=== PATIENT | female | born 1935 | race Caucasian/White ===

== ENCOUNTER 2018-08-14 19:41 | Inpatient (IN) ==
[2018-08-14] MEDS ORDERED: Isovue-370 500 ML BOTTLE IVP ONE (19:51)
--- NOTE | 2018-08-14 19:55 | Emergency Department Note ---
Disposition Clinical Impression: Cough Disposition: Still a Patient Condition: Fair Referrals: NONE,PCP [Primary Care Provider] - Forms: ED Satisfaction Letter General Adult HPI - General Chief complaint: ED Shortness of Breath/Dyspnea Stated complaint: "Lung mass" Time Seen by Provider: 08/14/18 19:51 Source: patient, EMS Limitations: no limitations - History of Present Illness Pain Scale: 0 - Related Data Home Medications Medication Instructions Recorded Confirmed Lisinopril [Zestril] 40 mg PO DAILY 09/07/17 07/04/18 Montelukast [Singulair] 10 mg PO QPM 05/28/18 07/04/18 risperiDONE [Risperidone] 1 mg PO BID 05/28/18 07/04/18 Acetaminophen [Tylenol] 325 - 650 mg PO TID PRN 07/04/18 07/04/18 Aspirin [Lo-Dose Aspirin EC] 81 mg PO DAILY 07/04/18 07/04/18 Atorvastatin [Lipitor] 10 mg PO DAILY 07/04/18 07/04/18 Cholecalciferol (Vitamin D3) 5,000 unit PO DAILY 07/04/18 07/04/18 [Vitamin D3] Melatonin 5 - 10 mg PO HS PRN 07/04/18 07/04/18 Mirtazapine 7.5 mg PO HS 07/04/18 07/04/18 Nicotine Patch [Nicoderm] 7 mg TD DAILY 07/04/18 07/04/18 Polyethylene Glycol 3350 [MiraLax 17 gm PO DAILY PRN 07/04/18 07/04/18 bowel prep] Previous Rx's Medication Instructions Recorded Albuterol Sulfate [Ventolin Hfa] 8 gm IH Q4H PRN #1 hfa.aer.ad 07/05/18 Budesonide/Formoterol 160/4.5 2 puff IH BIDR #1 hfa.aer.ad 07/05/18 [Symbicort 160/4.5] predniSONE [PredniSONE] 40 mg PO DAILY #9 tablet 07/05/18 Allergies Allergy/AdvReac Type Severity Reaction Status Date / Time Mercury (Elemental) Allergy Rash Verified 03/15/18 07:49 Past Medical History - Past Medical History Medical history: Reports: COPD, hyperlipidemia, hypertension Psychiatric history: Reports: no psych history INLAYER SILVER history: Reports: no INLAYER SILVER history - Social History Smoking Status: Current every day smoker Smokeless Tobacco Status: No Alcohol use: Reports: none Drug use: Reports: none Physical Exam - General Limitations: no limitations General appearance: alert, in no apparent distress Course Vital Signs Temperature 98.6 F 08/14/18 19:48 Pulse Rate 87 08/14/18 19:48 Respiratory Rate 16 08/14/18 19:48 Blood Pressure 136/87 08/14/18 19:48 O2 Sat by Pulse Oximetry 93 08/14/18 19:48 Temperature 98.6 F 08/14/18 19:48 Pulse Rate 87 08/14/18 19:48 Respiratory Rate 16 08/14/18 19:48 Blood Pressure 136/87 08/14/18 19:48 O2 Sat by Pulse Oximetry 93 08/14/18 19:48 Oxygen Delivery Oxygen Delivery Nasal Cannula Medical Decision Making - Lab Data Result diagrams: 08/14/18 19:51 08/14/18 19:51 Lab Results 08/14/18 08/14/18 Range/Units 19:51 19:51 WBC 14.9 H (4.3-11.1) K/mcL RBC 4.32 (3.82-4.97) M/mcL Hgb 12.8 (11.5-15.4) g/dL Hct 39.1 (35.3-44.9) % MCV 90.5 (83.0-100.0) fL MCH 29.6 (28.0-33.3) pg MCHC 32.7 (31.6-35.5) g/dL RDW 14.0 (11.5-14.5) % Plt Count 231 (140-400) K/mcL MPV 11.3 (9.4-12.4) fL Immature Gran % 0.7 (0-4) % Seg Neutrophils % 93.3 % Lymphocytes % 3.1 % Monocytes % 2.7 % Eosinophils % 0.1 % Basophils % 0.1 % Neutrophils # 13.9 H (1.6-8.9) K/mcL Lymphocytes # 0.5 L (0.6-4.6) K/mcL Monocytes # 0.4 (0.0-1.3) K/mcL Eosinophils # 0.0 (0.0-0.6) K/mcL Basophils # 0.0 (0.0-0.2) K/mcL Sodium 139 (136-145) mEq/L Potassium 4.0 (3.5-5.1) mEq/L Chloride 101 (98-107) mEq/L Carbon Dioxide 27 (23-29) mEq/L BUN 20 (8-23) mg/dL Creatinine 0.78 (0.60-1.20) mg/dL Est GFR ( Amer) > 60 (> 60) Est GFR (Non-Af Amer) > 60 (> 60) BUN/Creatinine Ratio 26 (6-26) Glucose 147 H (70-105) mg/dL Calculated Osmolality 293 (280-300) Calcium 9.9 (8.6-10.3) mg/dL Attestation Statement - Attestation Attestation: I examined this patient and my medical decision-making was reviewed with the Resident Physician. I agree with the documented findings, disposition and treatment plan as described except to the extent set forth below. Patient to the ED with cough. Onset a couple of days ago. Productive of sputum. She went to the urgent care. Her chest x-ray was read as a possible mass that she sent here for CAT scan. She denies shortness of breath fever or chest pain. On exam she is in no respiratory distress. She is hypoxic at 89% on room air. Lungs diminished but clear. Plan. Labs, EKG, CT chest. CT chest pending. Signed out to Dr. Garcia pending CT result and likely admission.
[2018-08-14 20:14] LABS: Basophils % 0.1 %; Eosinophils % 0.1 %; Hematocrit 39.1 % (35.3-44.9); Hemoglobin 12.8 g/dL (11.5-15.4); Immature Granulocytes % 0.7 % (0-4); Lymphocytes # 0.5 K/mcL (0.6-4.6); Lymphocytes % 3.1 %; Mean Corpuscular HGB Conc 32.7 g/dL (31.6-35.5); Mean Corpuscular Hemoglobin 29.6 pg (28.0-33.3); Mean Corpuscular Volume 90.5 fL (83.0-100.0); Mean Platelet Volume 11.3 fL (9.4-12.4); Monocytes # 0.4 K/mcL (0.0-1.3); Monocytes % 2.7 %; Neutrophils # 13.9 K/mcL (1.6-8.9); Platelet Count 231 K/mcL (140-400); Red Blood Count 4.32 M/mcL (3.82-4.97); Segmented Neutrophils % 93.3 %
[2018-08-14 20:30] LABS: BUN/Creatinine Ratio 26 (6-26); Blood Urea Nitrogen 20 mg/dL (8-23); Calcium 9.9 mg/dL (8.6-10.3); Carbon Dioxide 27 mEq/L (23-29); Chloride 101 mEq/L (98-107); Glucose 147 mg/dL (70-105); Osmolality,Calculated 293 (280-300); Sodium 139 mEq/L (136-145); eGFR For Non-African Americans > 60 (> 60)
--- NOTE | 2018-08-14 20:58 | Emergency Department Note ---
Disposition Clinical Impression: Cough Disposition: Still a Patient Condition: Fair Referrals: NONE,PCP [Primary Care Provider] - Forms: ED Satisfaction Letter General Adult HPI - General Chief complaint: ED Shortness of Breath/Dyspnea Stated complaint: "Lung mass" Time Seen by Provider: 08/14/18 19:51 Source: patient, EMS Mode of arrival: EMS Limitations: no limitations Nursing Notes Reviewed: Yes Vital Signs Reviewed: Yes - History of Present Illness HPI Narrative: 83-year-old female with significant past medical history of COPD presenting to the emergency department chief complaint of cough. Patient states for the past 3 days she has had a cough with sputum that is yellow colored. Denies any hemoptysis. Denies any chest pain, abdominal pain, fevers, nausea or vomiting. She states she went to an urgent care today with her family were chest x-ray was completed. This was concerning for potential mass and was transferred here for further evaluation. Patient states she is not normally on oxygen the patient was requiring 2 L to stay above 90%. Pain Scale: 0 - Related Data Home Medications Medication Instructions Recorded Confirmed Lisinopril [Zestril] 40 mg PO DAILY 09/07/17 07/04/18 Montelukast [Singulair] 10 mg PO QPM 05/28/18 07/04/18 risperiDONE [Risperidone] 1 mg PO BID 05/28/18 07/04/18 Acetaminophen [Tylenol] 325 - 650 mg PO TID PRN 07/04/18 07/04/18 Aspirin [Lo-Dose Aspirin EC] 81 mg PO DAILY 07/04/18 07/04/18 Atorvastatin [Lipitor] 10 mg PO DAILY 07/04/18 07/04/18 Cholecalciferol (Vitamin D3) 5,000 unit PO DAILY 07/04/18 07/04/18 [Vitamin D3] Melatonin 5 - 10 mg PO HS PRN 07/04/18 07/04/18 Mirtazapine 7.5 mg PO HS 07/04/18 07/04/18 Nicotine Patch [Nicoderm] 7 mg TD DAILY 07/04/18 07/04/18 Polyethylene Glycol 3350 [MiraLax 17 gm PO DAILY PRN 07/04/18 07/04/18 bowel prep] Previous Rx's Medication Instructions Recorded Albuterol Sulfate [Ventolin Hfa] 8 gm IH Q4H PRN #1 hfa.aer.ad 07/05/18 Budesonide/Formoterol 160/4.5 2 puff IH BIDR #1 hfa.aer.ad 07/05/18 [Symbicort 160/4.5] predniSONE [PredniSONE] 40 mg PO DAILY #9 tablet 07/05/18 Allergies Allergy/AdvReac Type Severity Reaction Status Date / Time Mercury (Elemental) Allergy Rash Verified 03/15/18 07:49 All systems ED: reviewed and negative except as stated. Constitutional: Denies: fever Eyes: Reports: as per HPI ENT ED: Reports: as per HPI Cardiovascular: Denies: chest pain Respiratory: Reports: cough, sputum production Gastrointestinal: Denies: abdominal pain Genitourinary: Reports: as per HPI Musculoskeletal: Reports: as per HPI Integumentary: Reports: as per HPI Neurological: Reports: as per HPI Psychiatric: Reports: as per HPI Endocrine: Reports: as per HPI Hematological/Lymphatic: Reports: as per HPI Allergic/Immunologic: Reports: as per HPI Past Medical History - Past Medical History Attestation: Yes The following information was validated with the patient. Medical history: Reports: COPD, hyperlipidemia, hypertension Psychiatric history: Reports: no psych history MANAGER OF DEVELOPMENT history: Reports: no MANAGER OF DEVELOPMENT history - Social History Smoking Status: Current every day smoker Smokeless Tobacco Status: No Alcohol use: Reports: none Drug use: Reports: none Physical Exam - General Limitations: no limitations General appearance: alert, in no apparent distress - Head Head exam: atraumatic, normocephalic, normal inspection - Eye Eye exam: Absent: scleral icterus - ENT ENT exam: mucous membranes moist - Neck Neck exam: Present: full ROM - Chest Chest inspection: Present: symmetric chest wall rise - Respiratory Respiratory exam: Present: normal lung sounds bilaterally. Absent: respiratory distress, wheezes - Cardiovascular Cardiovascular exam: Present: regular rate, normal rhythm, normal heart sounds - Abdominal Exam Abdominal exam: Present: soft, Non-Tender. Absent: distention, guarding, rebound - Extremities Exam Extremities exam: Present: full ROM - Neurological Exam Neurological exam: Present: alert - Psychiatric Psychiatric exam: Present: normal affect - Skin Skin exam: Present: warm Course Course Narrative: 83-year-old female presenting for an abnormal chest x-ray and cough. In the room she is alert and oriented 3. Oxygen saturation 88% on room air therefore placed on 2 L nasal cannula and oxygen saturation responded appropriately up to 92%. Good waveform. Otherwise hemodynamically stable. At this time will order a CT of the chest along with basic labs including CBC and BMP. Disposition most likely admission due to hypoxia but pending images and labs. Patient agrees with this plan. - Reevaluation(s) Reevaluation #1: Patient's laboratory analysis shows mild leukocytosis. CT pending at this time. We will plan to sign the patient out to Dr. Garcia at this time. Patient remains alert and oriented 3 and hemodynamically stable. Vital Signs Temperature 98.6 F 08/14/18 19:48 Pulse Rate 87 08/14/18 19:48 Respiratory Rate 16 08/14/18 19:48 Blood Pressure 136/87 08/14/18 19:48 O2 Sat by Pulse Oximetry 93 08/14/18 19:48 Temperature 98.6 F 08/14/18 19:48 Pulse Rate 87 08/14/18 19:48 Respiratory Rate 16 08/14/18 19:48 Blood Pressure 136/87 08/14/18 19:48 O2 Sat by Pulse Oximetry 93 08/14/18 19:48 Oxygen Delivery Oxygen Delivery Nasal Cannula Medical Decision Making - Lab Data Result diagrams: 08/14/18 19:51 08/14/18 19:51 Lab Results 08/14/18 08/14/18 Range/Units 19:51 19:51 WBC 14.9 H (4.3-11.1) K/mcL RBC 4.32 (3.82-4.97) M/mcL Hgb 12.8 (11.5-15.4) g/dL Hct 39.1 (35.3-44.9) % MCV 90.5 (83.0-100.0) fL MCH 29.6 (28.0-33.3) pg MCHC 32.7 (31.6-35.5) g/dL RDW 14.0 (11.5-14.5) % Plt Count 231 (140-400) K/mcL MPV 11.3 (9.4-12.4) fL Immature Gran % 0.7 (0-4) % Seg Neutrophils % 93.3 % Lymphocytes % 3.1 % Monocytes % 2.7 % Eosinophils % 0.1 % Basophils % 0.1 % Neutrophils # 13.9 H (1.6-8.9) K/mcL Lymphocytes # 0.5 L (0.6-4.6) K/mcL Monocytes # 0.4 (0.0-1.3) K/mcL Eosinophils # 0.0 (0.0-0.6) K/mcL Basophils # 0.0 (0.0-0.2) K/mcL Sodium 139 (136-145) mEq/L Potassium 4.0 (3.5-5.1) mEq/L Chloride 101 (98-107) mEq/L Carbon Dioxide 27 (23-29) mEq/L BUN 20 (8-23) mg/dL Creatinine 0.78 (0.60-1.20) mg/dL Est GFR ( Amer) > 60 (> 60) Est GFR (Non-Af Amer) > 60 (> 60) BUN/Creatinine Ratio 26 (6-26) Glucose 147 H (70-105) mg/dL Calculated Osmolality 293 (280-300) Calcium 9.9 (8.6-10.3) mg/dL
[2018-08-14] MEDS ORDERED: methylPREDNISolone 125 MG/2 ML VIAL IVP STA (22:30)
[2018-08-14] MEDS ORDERED: cefTRIAXone 1,000 MG in Water for inj. (sterile) 20 ML 10 ML IVP ONE (22:30)
[2018-08-14] MEDS ORDERED: Ipratropium/Albuterol Neb 3 ML IH ONE (22:30)
[2018-08-14] MEDS ORDERED: risperiDONE 1 MG TABLET PO ONE (22:30)
[2018-08-14] MEDS ORDERED: Azithromycin 250 MG TABLET PO ONE (22:30)
[2018-08-14] MEDS ORDERED: Mirtazapine 15 MG TABLET PO ONE ×2 (22:31→22:34)
--- NOTE | 2018-08-14 23:44 | Emergency Department Note ---
Disposition Clinical Impression: Cough Pneumonia Qualifiers: Pneumonia type: due to unspecified organism Laterality: unspecified laterality Lung location: unspecified part of lung Qualified Code(s): J18.9 - Pneumonia, unspecified organism Disposition: Admitted As Inpatient Condition: Fair General Adult HPI - General Chief complaint: ED Shortness of Breath/Dyspnea Stated complaint: "Lung mass" Time Seen by Provider: 08/14/18 19:51 Source: patient, EMS Mode of arrival: EMS Limitations: no limitations - History of Present Illness Pain Scale: 0 - Related Data Home Medications Medication Instructions Recorded Confirmed Lisinopril [Zestril] 40 mg PO DAILY 09/07/17 08/14/18 Montelukast [Singulair] 10 mg PO QPM 05/28/18 08/14/18 risperiDONE [Risperidone] 1 mg PO BID 05/28/18 08/14/18 Acetaminophen [Tylenol] 325 - 650 mg PO TID PRN 07/04/18 08/14/18 Aspirin [Lo-Dose Aspirin EC] 81 mg PO DAILY 07/04/18 08/14/18 Atorvastatin [Lipitor] 10 mg PO DAILY 07/04/18 08/14/18 Cholecalciferol (Vitamin D3) 5,000 unit PO DAILY 07/04/18 08/14/18 [Vitamin D3] Melatonin 5 mg PO HS PRN 07/04/18 08/14/18 Albuterol Sulfate [Ventolin Hfa] 2 puff IH Q4H PRN 08/14/18 08/14/18 Docusate [Colace] 100 mg PO BID PRN 08/14/18 08/14/18 Mirtazapine [Remeron] 30 mg PO HS 08/14/18 08/14/18 Polyethylene Glycol 3350 [MiraLAX] 17 gm PO DAILY PRN 08/14/18 08/14/18 Previous Rx's Medication Instructions Recorded Budesonide/Formoterol 160/4.5 2 puff IH BIDR #1 hfa.aer.ad 07/05/18 [Symbicort 160/4.5] Allergies Allergy/AdvReac Type Severity Reaction Status Date / Time Mercury (Elemental) Allergy Rash Verified 03/15/18 07:49 Constitutional: Denies: fever Eyes: Reports: as per HPI ENT ED: Reports: as per HPI Cardiovascular: Denies: chest pain Respiratory: Reports: cough, sputum production Gastrointestinal: Denies: abdominal pain Genitourinary: Reports: as per HPI Musculoskeletal: Reports: as per HPI Integumentary: Reports: as per HPI Neurological: Reports: as per HPI Psychiatric: Reports: as per HPI Endocrine: Reports: as per HPI Hematological/Lymphatic: Reports: as per HPI Allergic/Immunologic: Reports: as per HPI Past Medical History - Past Medical History Medical history: Reports: COPD, hyperlipidemia, hypertension Psychiatric history: Reports: no psych history STUDENT ACTIVITIES DIRECTOR history: Reports: no STUDENT ACTIVITIES DIRECTOR history - Social History Smoking Status: Current every day smoker Smokeless Tobacco Status: No Alcohol use: Reports: none Drug use: Reports: none Physical Exam - General Limitations: no limitations General appearance: alert, in no apparent distress Course - Reevaluation(s) Reevaluation #1: Patient was taken over at sign out from Dr Foote. Bedside sign out was performed. Patient has had developing cough. Chest x-ray at urgent care showed concern for possible mass. CT was performed which showed concern for pneumonia andaffect mass. Patient will need follow-up x-ray. Patient does have a new oxygen requirement. She is otherwise living at assisted living and does not have 24-hour nursing available to her. Patient will be admitted for further management of pneumonia. General appearance: NAD, conversant Eyes: anicteric sclerae, moist conjunctivae HENT: Atraumatic; oropharynx clear with moist mucous membranes Neck: Normal appearance; Trachea midline Chest: Symmetrical chest rise; No respiratory distress Mild associated wheezing with rhonchi to the right upper lobe Extremities: No peripheral edema or extremity tenderness Skin: Normal temperature, turgor and texture; no rash, ulcers or subcutaneous nodules Psych: Appropriate mood and affect Neuro: Awake and alert Vital Signs Temperature 98.6 F 08/14/18 19:48 Pulse Rate 87 08/14/18 19:48 Respiratory Rate 16 08/14/18 19:48 Blood Pressure 136/87 08/14/18 19:48 O2 Sat by Pulse Oximetry 93 08/14/18 19:48 Temperature 98.6 F 08/14/18 19:48 Pulse Rate 85 08/14/18 23:00 Respiratory Rate 20 08/14/18 23:00 Blood Pressure 133/77 08/14/18 23:00 O2 Sat by Pulse Oximetry 96 08/14/18 23:00 Oxygen Delivery Oxygen Delivery Nasal Cannula Medical Decision Making - Lab Data Result diagrams: 08/14/18 19:51 08/14/18 19:51 Lab Results 08/14/18 08/14/18 Range/Units 19:51 19:51 WBC 14.9 H (4.3-11.1) K/mcL RBC 4.32 (3.82-4.97) M/mcL Hgb 12.8 (11.5-15.4) g/dL Hct 39.1 (35.3-44.9) % MCV 90.5 (83.0-100.0) fL MCH 29.6 (28.0-33.3) pg MCHC 32.7 (31.6-35.5) g/dL RDW 14.0 (11.5-14.5) % Plt Count 231 (140-400) K/mcL MPV 11.3 (9.4-12.4) fL Immature Gran % 0.7 (0-4) % Seg Neutrophils % 93.3 % Lymphocytes % 3.1 % Monocytes % 2.7 % Eosinophils % 0.1 % Basophils % 0.1 % Neutrophils # 13.9 H (1.6-8.9) K/mcL Lymphocytes # 0.5 L (0.6-4.6) K/mcL Monocytes # 0.4 (0.0-1.3) K/mcL Eosinophils # 0.0 (0.0-0.6) K/mcL Basophils # 0.0 (0.0-0.2) K/mcL Sodium 139 (136-145) mEq/L Potassium 4.0 (3.5-5.1) mEq/L Chloride 101 (98-107) mEq/L Carbon Dioxide 27 (23-29) mEq/L BUN 20 (8-23) mg/dL Creatinine 0.78 (0.60-1.20) mg/dL Est GFR ( Amer) > 60 (> 60) Est GFR (Non-Af Amer) > 60 (> 60) BUN/Creatinine Ratio 26 (6-26) Glucose 147 H (70-105) mg/dL Calculated Osmolality 293 (280-300) Calcium 9.9 (8.6-10.3) mg/dL
[2018-08-15] MEDS ORDERED: Naloxone 0.4 MG/ML INJ IVP PRN (04:27)
--- NOTE | 2018-08-15 04:33 | Internal Med History&Physical ---
Date of Encounter: 08/15/18 Time of Encounter: 04:00 Internal Medicine - H&P: HPI Chief complaint: Right lower lobe pneumonia Admitted From: Emergency Dept Plans for Post Hospital Care: Home History of present illness: Ms. Roman is a 83 year old female Patient presented to the emergency room with a cough. She is a resident at a shelter, and has had a cough for the last 3 days productive of yellow sputum. She did go to an urgent care prior to this where a chest x-ray was done. Initially there was concern for possible mass and they sent her to the emergency room for further evaluation. In the emergency room patient's initial vital signs were within normal limits including a temperature of 98.6. She was saturating at 93% on 2 L. CBC showed a white count of 14.9, but otherwise within normal limits. BMP was within normal limits aside from an elevated glucose of 147. Chest CT was performed that showed new right lower lobe airspace disease compatible with pneumonia. She has previously described nodules, and follow-up was recommended by radiology. Due to patient's likely pneumonia blood cultures were drawn and she was started on ceftriaxone and azithromycin. She was also given breathing treatments and Solu-Medrol. She was admitted to the hospital for for further management. Upon my assessment, patient is resting comfortably in hospital bed in no acute distress. She was initially difficult to awaken but eventually was able to stay awake throughout the duration of the exam. She denied chest pain, abdominal pain, nausea, vomiting, diarrhea and constipation. She recently was moved to a shelter in April, and she states that she "hates it." She made some references to suicide, but when asked bluntly if she had thoughts of suicide or hurting herself. She denied it. She is a full code. Past Med Surg Social Fam HX - Past Medical History Medical history: COPD, hyperlipidemia, hypertension Psychiatric history: no psych history - Social History Smoking Status: Current every day smoker Smokeless Tobacco Status: No Alcohol use: none Drug use: none - Family History Mother Living Status: Hx Family Cardiac Disorders: No Hx Family Respiratory Disorders: Yes (COPD) Hx Family Cancer: Yes (brother) Hx Family GI Disorders: No Hx Family Endocrine Disorder: No Hx Family Neuromuscular Disorders: No Hx Family Neurologic Disorders: No Hx Family HEENT Disorders: No Hx Family Autoimmune Disorders: No Grandfather Hx Family Cardiac Disorders: Yes ([place]) Internal Medicine - H&P: Meds Lisinopril [Zestril] 40 mg PO DAILY 09/07/17 [History] Montelukast [Singulair] 10 mg PO QPM 05/28/18 [History] risperiDONE [Risperidone] 1 mg PO BID 05/28/18 [History] Acetaminophen [Tylenol] 325 - 650 mg PO TID PRN 07/04/18 [History] Aspirin [Lo-Dose Aspirin EC] 81 mg PO DAILY 07/04/18 [History] Atorvastatin [Lipitor] 10 mg PO DAILY 07/04/18 [History] Cholecalciferol (Vitamin D3) [Vitamin D3] 5,000 unit PO DAILY 07/04/18 [History] Melatonin 5 mg PO HS PRN 07/04/18 [History] Budesonide/Formoterol 160/4.5 [Symbicort 160/4.5] 2 puff IH BIDR #1 hfa.aer.ad 07/05/18 [Rx] Albuterol Sulfate [Ventolin Hfa] 2 puff IH Q4H PRN 08/14/18 [History] Docusate [Colace] 100 mg PO BID PRN 08/14/18 [History] Mirtazapine [Remeron] 30 mg PO HS 08/14/18 [History] Polyethylene Glycol 3350 [MiraLAX] 17 gm PO DAILY PRN 08/14/18 [History] Allergy/AdvReac Type Severity Reaction Status Date / Time Mercury (Elemental) Allergy Rash Verified 03/15/18 07:49 All Systems PM: A 10-system review of systems was performed and is negative for pertinent findings except as documented above in the HPI. - Constitutional Vitals: Temp Pulse Resp BP Pulse Ox 98.6 F 82 15 131/77 94 08/15/18 01:54 08/15/18 01:54 08/15/18 01:54 08/15/18 01:54 08/15/18 02:14 General appearance: Present: cooperative, A&O X 3, pleasant, no acute distress, answers questions appropriately Exam: - - Head Head exam: Present: normal inspection - Eye Eye exam: Present: EOMI, normal appearance - Respiratory Respiratory exam: Present: rales. Absent: CTAB, respiratory distress, rhonchi, wheezes - Cardiovascular Cardiovascular exam: Present: RRR. Absent: diastolic murmur, systolic murmur - GI/Abdominal GI/Abdominal exam: Present: normal bowel sounds, soft. Absent: tenderness - Extremities Exam Extremities exam: Present: warm, radial pulses palpable and symmetrical. Absent: pedal edema, tenderness - Neurological Exam Neurological exam: Present: no focal deficits, strengths equal and symetr throughout. Absent: motor sensory deficit, facial droop, speech deficit - Skin Skin exam: Present: dry, normal color, warm Internal Med - H&P Results - Labs CBC & Chem 7: 08/14/18 19:51 08/14/18 19:51 Labs: Short CBC 08/14/18 Range/Units 19:51 WBC 14.9 H (4.3-11.1) K/mcL Hgb 12.8 (11.5-15.4) g/dL Hct 39.1 (35.3-44.9) % Plt Count 231 (140-400) K/mcL Neutrophils # 13.9 H (1.6-8.9) K/mcL BMP 08/14/18 19:51 Sodium 139 Potassium 4.0 Chloride 101 Carbon Dioxide 27 BUN 20 Creatinine 0.78 Glucose 147 H Calcium 9.9 - Impressions ITS Impressions Chest CT 08/14/18 19:51 IMPRESSION: New right lower lobe airspace disease compatible with pneumonia. Previously described nodules may be obscured by acute airspace disease, and follow-up should be performed as recommended previously. Emphysema and right apical scarring/disease, stable from prior exam. T12 compression fracture, with slightly increased height loss compared to the prior exam. D/ / 08/14/2018 22:11:29 Víctor Jones / shaka Interpreting Provider: Víctor Jones - Assessment and Plan (1) Pneumonia Current Visit: Yes Status: Acute Assessment and plan: Patient found to have right lower lobe pneumonia on CT. No masses were found. She was started on azithromycin and ceftriaxone in the emergency room. Blood cultures were drawn. Patient initially hypoxic in the ER but improved with 2 L nasal cannula. Follow-up blood cultures Continue IV antibiotics Monitor for worsening signs of infection Oxygen supplementation as needed Qualifiers: Pneumonia type: due to unspecified organism Laterality: right Lung location: lower lobe of lung Qualified Code(s): J18.1 - Lobar pneumonia, unspecified organism (2) Acute exacerbation of chronic obstructive airways disease Current Visit: No Status: Acute Assessment and plan: No wheezing on my exam. The patient had steroids as well as breathing treatments in the emergency room prior to my evaluation. Continue oxygen supplementation as needed Continue breathing treatments Continue by mouth prednisone Treating pneumonia as above. (3) Diabetes Current Visit: Yes Status: Acute Assessment and plan: Patient is not an insulin dependent diabetic. Patient stated that she is diabetic but she does have any medications for her blood sugar on her med list. Monitor sugars ACHS Diabetic diet Low dose insulin sliding scale as needed A1c in the morning Qualifiers: Diabetes mellitus type: type 2 Diabetes mellitus long-term insulin use: without long-term use Diabetes mellitus complication status: with hyperglycemia Qualified Code(s): E11.65 - Type 2 diabetes mellitus with hyperglycemia (4) Depression Current Visit: Yes Status: Acute Assessment and plan: Patient seemed to have some suicidal thoughts as well as depression during my conversation with her. She referred to how much she hates her shelter in living situation. She referred to suicide multiple times during the exam. She stated that she was not suicidal, but she did inform the nurse prior to my interview that she could easily him up with a plan if she had to. Psychiatry evaluation in the morning Qualifiers: Depression Type: unspecified Qualified Code(s): F32.9 - Major depressive disorder, single episode, unspecified (5) DVT prophylaxis Current Visit: No Status: Acute Assessment and plan: Subcutaneous heparin - Time Spent With Patient Total time spent is greater than 50% in coordination of care (as documented) at patient's floor/unit and/or counseling patient: Greater than 35 minutes
[2018-08-15] MEDS ORDERED: Albuterol 2.5 MG/3 ML NEBULIZER IH PRN (04:49)
[2018-08-15] MEDS: Ipratropium/Albuterol Neb 3 ML IH SCH ×4 (05:01→22:09)
[2018-08-15 05:51] LABS: Hematocrit 40.3 % (35.3-44.9); Hemoglobin 13.2 g/dL (11.5-15.4); Mean Corpuscular HGB Conc 32.8 g/dL (31.6-35.5); Mean Corpuscular Hemoglobin 29.7 pg (28.0-33.3); Mean Corpuscular Volume 90.8 fL (83.0-100.0); Mean Platelet Volume 11.3 fL (9.4-12.4); Platelet Count 245 K/mcL (140-400); Red Blood Count 4.44 M/mcL (3.82-4.97)
[2018-08-15 06:15] LABS: BUN/Creatinine Ratio 24 (6-26); Blood Urea Nitrogen 21 mg/dL (8-23); Calcium 9.9 mg/dL (8.6-10.3); Carbon Dioxide 27 mEq/L (23-29); Chloride 102 mEq/L (98-107); Glucose 213 mg/dL (70-105); Osmolality,Calculated 297 (280-300); Potassium 4.2 mEq/L (3.5-5.1); Sodium 139 mEq/L (136-145); eGFR For Non-African Americans > 60 (> 60)
[2018-08-15] MEDS: *HR* Heparin 5,000 UNIT/ML VIAL SQ SCH ×2 (06:20→16:58)
--- NOTE | 2018-08-15 09:28 | Consult Note ---
Date of Encounter: 08/15/18 Time of Encounter: 09:00 Assessment & Recommendation (1) Depression Current visit: Yes Status: Acute Qualifiers: Depression Type: unspecified Qualified Code(s): F32.9 - Major depressive disorder, single episode, unspecified (2) Major depressive disorder, recurrent, severe with psychotic features Current visit: Yes Status: Acute Assessment & Recommendation: No suicidal or homicidal ideation. Does not meet qualification for inpatient psychiatric hospitalization. Continue home medication with Mirtazapine and Risperidone. Follow-up with scheduled outpatient psychiatrist per patient. Will sign off. History of Present Illness Requesting Physician: Eduar Solorzano MD Reason for consult: depression History of present illness: Ms. Roman is an 83 year old female who presents feeling depressed. She doesn't know how long she has felt this way. She explains that living in a [facility] has made her severely depressed. The thought of knowing that she will be there forever makes her feel like there is no hope. She also describes experiencing auditory hallucinations at her usp but doesn't recall what she hears. During the interview she makes a comment "you better hurry i'm getting depressed now." Whe asked further about that statement she explains talking about her assisted living situation it makes her more depressed. She reports insomnia, loss of interest, no energy, concentration limited, poor appetite for an unidentifiable time period. She denies suicidal or homicidal ideation. CC: Eduar Solorzano MD Past Med Surg Social Fam HX - Past Medical History Medical history: COPD, hyperlipidemia, hypertension - Past Psychiatric History Psychiatric history: Reports: depression Family psychiatric history: Unknown Family History of Suicide: Unknown - Social History Smoking Status: Current every day smoker Smokeless Tobacco Status: No Alcohol use: none Drug use: none - Family History Mother Living Status: Hx Family Cardiac Disorders: No Hx Family Respiratory Disorders: Yes (COPD) Hx Family Cancer: Yes (brother) Hx Family GI Disorders: No Hx Family Endocrine Disorder: No Hx Family Neuromuscular Disorders: No Hx Family Neurologic Disorders: No Hx Family HEENT Disorders: No Hx Family Autoimmune Disorders: No Grandfather Hx Family Cardiac Disorders: Yes (ND) Medications & Allergies Lisinopril [Zestril] 40 mg PO DAILY 09/07/17 [History] Montelukast [Singulair] 10 mg PO QPM 05/28/18 [History] risperiDONE [Risperidone] 1 mg PO BID 05/28/18 [History] Acetaminophen [Tylenol] 325 - 650 mg PO TID PRN 07/04/18 [History] Aspirin [Lo-Dose Aspirin EC] 81 mg PO DAILY 07/04/18 [History] Atorvastatin [Lipitor] 10 mg PO DAILY 07/04/18 [History] Cholecalciferol (Vitamin D3) [Vitamin D3] 5,000 unit PO DAILY 07/04/18 [History] Melatonin 5 mg PO HS PRN 07/04/18 [History] Budesonide/Formoterol 160/4.5 [Symbicort 160/4.5] 2 puff IH BIDR #1 hfa.aer.ad 07/05/18 [Rx] Albuterol Sulfate [Ventolin Hfa] 2 puff IH Q4H PRN 08/14/18 [History] Docusate [Colace] 100 mg PO BID PRN 08/14/18 [History] Mirtazapine [Remeron] 30 mg PO HS 08/14/18 [History] Polyethylene Glycol 3350 [MiraLAX] 17 gm PO DAILY PRN 08/14/18 [History] Allergy/AdvReac Type Severity Reaction Status Date / Time Mercury (Elemental) Allergy Rash Verified 03/15/18 07:49 Review of Systems Constitutional: Reports: weakness Eyes: Denies: eye pain, vision change Ears, Nose, Throat: Denies: ear pain, throat pain, dental pain, hearing loss, congestion Cardiovascular: Denies: chest pain Respiratory: Reports: sputum production Gastrointestinal: Denies: abdominal pain, nausea, vomiting, diarrhea, constipation Genitourinary female: Denies: urgency, dysuria, frequency, abnormal menses, dyspareunia Musculoskeletal: Denies: joint swelling, joint pain Integumentary: Denies: rash, lesions, pruritus Neurological: Reports: weakness Psychiatric: Reports: depression, abnormal sleep pattern, auditory hallucinations, difficulty concentrating, hopelessness. Denies: suicidal ideation, homicidal ideation, visual hallucinations Endocrine: Denies: fatigue, heat or cold intolerance Hematologic/Lymphatic: Denies: easy bruising, lymphadenopathy Allergic/Immunologic: Denies: urticaria, itchy eyes Psychiatry Exam - Constitutional Vitals: Temp Pulse Resp BP Pulse Ox 98.0 F 86 15 110/65 92 08/15/18 06:43 05/17/19 06:43 08/15/18 06:43 08/15/18 06:43 08/15/18 06:43 General appearance: age & developmentally appropriate - Musculoskeletal Gait: slow Strength & Tone: mild weakness - Psychiatric Patient Orientation: Yes Person, Yes Time, Yes Place Level of alertness: Alert Behavior: calm, cooperative Psychomotor activity: Slowed Eye Contact: Maintains Eye Contact Mood Description: Depressed Patient description of mood: "I feel sad all the time" Affect description: congruent with mood Speech Volume: Soft/Quiet Speech pattern: normal rate, normal rhythm, normal tone, fluent, spontaneous Language & Vocabulary: consistent with education Thought Process: Intact, Linear, Goal Oriented Thought Content: No Suicidal ideation, No Homicidal ideation Perceptual Disturbances: Yes Auditory hallucinations, No Visual hallucinations Attention Span Ability: Capable of Focused Attention Memory Description: Grossly Intact Patient Reliability: Questionable Historian Fund of knowledge: Yes below average Intelligence Estimate: Average Judgment: Fair Insight: Partial Results - Labs Labs: Laboratory Last Values WBC 11.2 K/mcL (4.3-11.1) H 08/15/18 05:15 RBC 4.44 M/mcL (3.82-4.97) 08/15/18 05:15 Hgb 13.2 g/dL (11.5-15.4) 08/15/18 05:15 Hct 40.3 % (35.3-44.9) 08/15/18 05:15 MCV 90.8 fL (83.0-100.0) 08/15/18 05:15 MCH 29.7 pg (28.0-33.3) 08/15/18 05:15 MCHC 32.8 g/dL (31.6-35.5) 08/15/18 05:15 RDW 14.0 % (11.5-14.5) 08/15/18 05:15 Plt Count 245 K/mcL (140-400) 08/15/18 05:15 MPV 11.3 fL (9.4-12.4) 08/15/18 05:15 Immature Gran % 0.7 % (0-4) 08/14/18 19:51 Seg Neutrophils % 93.3 % 08/14/18 19:51 3.1 % 08/14/18 19:51 2.7 % 08/14/18 19:51 0.1 % 08/14/18 19:51 0.1 % 08/14/18 19:51 13.9 K/mcL (1.6-8.9) H 08/14/18 19:51 0.5 K/mcL (0.6-4.6) L 08/14/18 19:51 0.4 K/mcL (0.0-1.3) 08/14/18 19:51 0.0 K/mcL (0.0-0.6) 08/14/18 19:51 0.0 K/mcL (0.0-0.2) 08/14/18 19:51 Sodium 139 mEq/L (136-145) 08/15/18 05:15 Potassium 4.2 mEq/L (3.5-5.1) 08/15/18 05:15 Chloride 102 mEq/L (98-107) 08/15/18 05:15 Carbon Dioxide 27 mEq/L (23-29) 08/15/18 05:15 BUN 21 mg/dL (8-23) 08/15/18 05:15 0.86 mg/dL (0.60-1.20) 08/15/18 05:15 Est GFR ( Amer) > 60 (> 60) 08/15/18 05:15 Est GFR (Non-Af Amer) > 60 (> 60) 08/15/18 05:15 24 (6-26) 08/15/18 05:15 Glucose 213 mg/dL (70-105) H 08/15/18 05:15 297 (280-300) 08/15/18 05:15 Calcium 9.9 mg/dL (8.6-10.3) 08/15/18 05:15 - Impressions Impressions Chest CT 08/14/18 19:51 IMPRESSION: New right lower lobe airspace disease compatible with pneumonia. Previously described nodules may be obscured by acute airspace disease, and follow-up should be performed as recommended previously. Emphysema and right apical scarring/disease, stable from prior exam. T12 compression fracture, with slightly increased height loss compared to the prior exam. D/ / 08/14/2018 22:11:29 Víctor Jones / shaka Interpreting Provider: Víctor Jones Consult Discharge Plan - Plan Referrals: NONE,PCP [Primary Care Provider] - - Attending Attestation The history, physical exam, and medical decision making was performed by the medical student either while I was physically present and actively involved or I personally re-performed the exam and medical decision making. I have verified the accuracy of the medical student's documentation with regards to the history, physical exam findings, and medical decision making. Saw with med student at 10:50. No SI/HI. SHe preferred we did not follow her as she likes to work with her own outpt providers.
--- NOTE | 2018-08-15 09:54 | Event Note ---
Date of Encounter: 08/15/18 Time of Encounter: 09:28 Admitted overnight. Feeling better. Denies any difficulty breathing or chest pain. Has some right sided upper back discomfort. Denies any fevers or chills. General: In no acute distress. Respiratory exam: no accessory muscle use. rales on Rt mid- low lung filed Cardiovascular exam: RRR, +S1, +S2. no murmur, gallop, rubs. GI/Abdominal exam: Non-tender, Non-distended, normal bowel sounds, soft, no peritoneal signs. Extremities exam: no pedal edema, pulses palpable in b/l lower extremities. no calf tenderness Neurological exam: CN II-XII intact, AO X3, no focal deficits. Skin exam: No skin rash Assessment Pneumonia COPD Diabetes Depression Plan - Continue empiric antibiotics, steroids and bronchodilators. - Follow up blood cultures and sputum cultures. - Start home risperidone, Symbicort, Remeron, Singulair. Lisinopril held for now.
[2018-08-15] MEDS ORDERED: Melatonin 3 MG TABLET PO PRN (10:11)
[2018-08-15 10:12] LABS: Estimated Average Glucose 134 mg/dl; Hemoglobin A1C 6.3 %
[2018-08-15] MEDS: predniSONE 20 MG TABLET PO SCH (10:17)
[2018-08-15] MEDS: cefTRIAXone 1,000 MG in Water for inj. (sterile) 20 ML 10 ML IVP SCH (10:17)
--- NOTE | 2018-08-15 10:18 | Electrocardiograph Report ---
[place] [id number] Test Date: 2018-08-14 Pat Name: Mercy Roman Department: [id number] Room: [facility] Gender: F [employer]: : [id number] Requested By: Nayeli See Order Number: [id number] Reading MD: Fito Araujo Measurements Intervals [place] Rate: 87 P: 71 NH: 138 QRS: -10 QRSD: 62 T: 43 QT: 359 QTc: 432 Interpretive Statements Sinus rhythm Atrial premature complexes Minimal ST depression, inferior- lateral leads Electronically Signed On 08-15-2018 10:17:10 EDT by Fito Araujo
[2018-08-15] MEDS: Budesonide/Formoterol 160/4.5 1 PUFF INH IH SCH ×2 (10:33→22:09)
[2018-08-15] MEDS: Mirtazapine 15 MG TABLET PO SCH (21:36)
[2018-08-15] MEDS: risperiDONE 1 MG TABLET PO SCH (21:37)
[2018-08-15] MEDS: Azithromycin 500 MG in D5% in Water 250 ML IVPB SCH (21:37)
[2018-08-16] MEDS: Ipratropium/Albuterol Neb 3 ML IH SCH ×4 (04:05→22:36)
[2018-08-16] MEDS: *HR* Heparin 5,000 UNIT/ML VIAL SQ SCH ×2 (05:39→17:33)
[2018-08-16] MEDS: risperiDONE 1 MG TABLET PO SCH ×2 (08:59→20:57)
[2018-08-16] MEDS: predniSONE 20 MG TABLET PO SCH (08:59)
[2018-08-16] MEDS: cefTRIAXone 1,000 MG in Water for inj. (sterile) 20 ML 10 ML IVP SCH (08:59)
[2018-08-16] MEDS: Aspirin Enteric Coated 81 MG Tablet PO SCH (08:59)
[2018-08-16] MEDS: Budesonide/Formoterol 160/4.5 1 PUFF INH IH SCH ×2 (10:13→22:35)
--- NOTE | 2018-08-16 13:09 | Internal Med Progress Note ---
<Delaney Reilly - Last Filed: 08/16/18 13:24> Hospitalist Progress Note - Encounter Date of Encounter: 08/16/18 - Exam Vitals: Temp Pulse Resp BP Pulse Ox 98.1 F 85 16 143/68 98 08/16/18 09:55 08/16/18 09:55 08/16/18 10:12 08/16/18 10:12 08/16/18 10:12 - Time Spent with Patient Total time spent is greater than 50% in coordination of care (as documented) at patient's floor/unit and/or counseling patient: Internal Medicine: Result - Labs CBC & Chem 7: 08/15/18 05:15 08/15/18 05:15 Consult Discharge Plan - Plan Referrals: NONE,PCP [Primary Care Provider] - - Attending Attestation I examined this patient and my medical decision-making was reviewed with the Resident Physician Dr Silverman. I agree with the documented findings, disposition and treatment plan as described except to the extent set forth below. Ms Roman is being observed for pneumonia and acute hypoxic resp failure awake, very anxious, states she's an anxious mess and just doesn't even know what to do next. Is eating breakfast. denies sob on o2 nc. + cough, no sputum today. denies wheezing. she states "I just don't even know what's going on". When reminded she is in hospital states that she knows and that she has p neumonia. Encouraged to eat her meal to keep up energy. She is worried about whom is paying for her admission. gen- alert, awake,appears stated age eyes- pupils equal round cv- reg rate and rhythm, normal s1,s2, no murmurs appreciated lungs- ctabl, no wheezing, rhonchi or crackles, normal resp effort on o2 nc, diminished right base abd- soft, non tender, non distended, + bs neuro- AAOx3, CN grossly intact Pneumonia, org uk, RLL -rocephin + azithro, nebs, PO steroids, bedside swallow eval given RLL pna Acute Hypxoc resp failure? COPD Hx and unclear if pt is to be wearing o2 at SNF -cont o2 nc prn, treatment of pna as above -follow up for known lung nodules outpt HTN- holding acei, monitor bp and add back as needed, fu outpt MDD, severe, recurrent, with psychotic features- seen by psych, no inpt tx needed, cont risperdal + remeron and fu outpt Known T12 compression fx- asx, imaging this admit with further height loss compared to last study, may fu oupt if sxs further diagnoses and plan as noted by resident <Fran Silverman - Last Filed: 08/16/18 14:58> Hospitalist Progress Note - Encounter Date of Encounter: 08/16/18 Time of Encounter: 14:47 - Subjective Interval History: Patient seen and examined at bedside this morning. She states that overall she does not feel well this morning. Her main complaint is feeling chilled. She thinks her breathing is likely improved from when she was admitted. She does have a cough with green sputum. Denies any fevers, nausea, vomiting. No acute events overnight - Exam Vitals: Temp Pulse Resp BP Pulse Ox 98.1 F 85 16 143/68 98 08/16/18 09:55 08/16/18 09:55 08/16/18 10:12 08/16/18 10:12 08/16/18 10:12 Exam: Gen.: Vitals noted. No acute distress. AAOx3, resting comfortably in bed. Thin appearing HEENT: PERRL/EOMI, oropharynx clear, Normocephalic, atraumatic, MMM Cardiac: RRR, no murmur, +S1/S2, No BLE edema Pulmonary: Decreased breath sounds in bilateral bases, otherwise clear to auscultation bilaterally, equal chest expansion, unlabored breathing Abdomen: soft, nontender, BS noted, no guarding, no palpable HSM Skin: warm and dry, no visible lesions. MSK: ROM not assessed, no joint swelling noted, gait no assessed while in bed. Non tender calf or clubbing Neuro: A&Ox3, moves all extremities, no focal deficits, sensation intact Psych: Appears mildly anxious, AOx3 - Assessment and Plan (1) Acute respiratory failure Current Visit: Yes Status: Acute Assessment and Plan: - Patient noted to be hypoxic on admission - Etiology is likely pneumonia with COPD exacerbation - Lungs are clear to auscultation today except for decreased breath sounds at bases. No wheezing appreciated - Chest x-ray in urgent care shows right lower lobe consolidation - CT scan at this facility does show a right lower lobe pneumonia with no obvious masses which were suspected on chest x-ray - She was started on ceftriaxone and azithromycin in the emergency room - Currently tolerating 2 L of oxygen, patient states that she is not on home oxygen Plan - We will continue ceftriaxone, azithromycin, day #2 - Continue by mouth prednisone, day #2 - Continue oxygen supplementation as necessary. Patient may require home oxygen on discharge (2) Acute exacerbation of chronic obstructive airways disease Current Visit: Yes Status: Acute Assessment and Plan: As above (3) HTN (hypertension) Current Visit: Yes Status: Chronic Assessment and Plan: Currently well-controlled Continue home medications (4) HLD (hyperlipidemia) Current Visit: Yes Status: Chronic Assessment and Plan: Continue home statin (5) Pneumonia Current Visit: Yes Status: Acute Assessment and Plan: As above (6) Diabetes Current Visit: Yes Status: Chronic Assessment and Plan: - Currently well controlled with blood sugars in the 100s - Hemoglobin A1c of 6.3% on 08/15-- actually prediabetes - No home medications - Is not on insulin - Continue diabetic diet (7) Major depressive disorder, recurrent, severe with psychotic features Current Visit: Yes Status: Acute Assessment and Plan: - Patient was noted to be possible suicidal ideation upon admission - She has been evaluated by psychiatry and diagnosed with MDD with psychotic features - Home medications include Risperdal, Remeron - Patient clarifies today that she is not suicidal but she does feel that people should pass when it is their time without suffering. - Will continue home meds - Psych recommending outpatient follow up and continuing current medications (8) DVT prophylaxis Current Visit: Yes Status: Acute Assessment and Plan: Subcutaneous heparin - Time Spent with Patient Total time spent is greater than 50% in coordination of care (as documented) at patient's floor/unit and/or counseling patient: Internal Medicine: Result - Labs CBC & Chem 7: 08/15/18 05:15 08/15/18 05:15 <Fran Silverman - Last Filed: 08/16/18 14:58> (1) Acute respiratory failure Qualifiers: Respiratory failure complication: hypoxia Qualified Code(s): J96.01 - Acute respiratory failure with hypoxia (3) HTN (hypertension) Qualifiers: Hypertension type: essential hypertension Qualified Code(s): I10 - Essential (primary) hypertension (4) HLD (hyperlipidemia) Qualifiers: Hyperlipidemia type: unspecified Qualified Code(s): E78.5 - Hyperlipidemia, unspecified (5) Pneumonia Qualifiers: Pneumonia type: due to unspecified organism Laterality: right Lung location: lower lobe of lung Qualified Code(s): J18.1 - Lobar pneumonia, unspecified organism (6) Diabetes Qualifiers: Diabetes mellitus type: type 2 Diabetes mellitus halfway insulin use: without halfway use Diabetes mellitus complication status: with hyperglycemia Qualified Code(s): E11.65 - Type 2 diabetes mellitus with hyperglycemia
[2018-08-16] MEDS ORDERED: Dextrose Gel 15 GM/37.5 ML TUBE PO PRN ×2 (18:07)
[2018-08-16] MEDS ORDERED: D5% in Water 1,000 ML IVC PRN (18:07)
[2018-08-16] MEDS ORDERED: *HR* Dextrose 50 % in Water (Syg) 50 ML SYRINGE IVP PRN (18:07)
[2018-08-16] MEDS: Azithromycin 500 MG in D5% in Water 250 ML IVPB SCH (20:57)
[2018-08-16] MEDS: Mirtazapine 15 MG TABLET PO SCH (20:57)
[2018-08-16] MEDS: Insulin LISPRO 300 UNITS/3 ML VIAL SQ SCH (20:58)
[2018-08-17] MEDS: Ipratropium/Albuterol Neb 3 ML IH SCH ×4 (03:40→21:26)
[2018-08-17 04:46] LABS: Basophils % 0.3 %; Eosinophils % 0.1 %; Hematocrit 36.5 % (35.3-44.9); Hemoglobin 11.7 g/dL (11.5-15.4); Immature Granulocytes % 0.8 % (0-4); Lymphocytes # 1.8 K/mcL (0.6-4.6); Mean Corpuscular HGB Conc 32.1 g/dL (31.6-35.5); Mean Corpuscular Hemoglobin 29.4 pg (28.0-33.3); Mean Corpuscular Volume 91.7 fL (83.0-100.0); Mean Platelet Volume 11.1 fL (9.4-12.4); Monocytes % 10.4 %; Neutrophils # 6.8 K/mcL (1.6-8.9); Platelet Count 241 K/mcL (140-400); Red Blood Count 3.98 M/mcL (3.82-4.97); Red Cell Distribution Width 14.3 % (11.5-14.5); Segmented Neutrophils % 70.4 %
[2018-08-17 04:59] LABS: BUN/Creatinine Ratio 37 (6-26); Blood Urea Nitrogen 35 mg/dL (8-23); Calcium 9.8 mg/dL (8.6-10.3); Carbon Dioxide 30 mEq/L (23-29); Chloride 103 mEq/L (98-107); Glucose 113 mg/dL (70-105); Osmolality,Calculated 301 (280-300); Potassium 4.2 mEq/L (3.5-5.1); Sodium 141 mEq/L (136-145); eGFR For Non-African Americans 56 (> 60)
[2018-08-17] MEDS: *HR* Heparin 5,000 UNIT/ML VIAL SQ SCH ×2 (05:43→19:01)
[2018-08-17] MEDS: Insulin LISPRO 300 UNITS/3 ML VIAL SQ SCH ×4 (08:49→21:47)
[2018-08-17] MEDS: risperiDONE 1 MG TABLET PO SCH ×2 (10:06→21:46)
[2018-08-17] MEDS: predniSONE 20 MG TABLET PO SCH (10:06)
[2018-08-17] MEDS: Aspirin Enteric Coated 81 MG Tablet PO SCH (10:06)
[2018-08-17] MEDS: cefTRIAXone 1,000 MG in Water for inj. (sterile) 20 ML 10 ML IVP SCH (10:06)
[2018-08-17] MEDS: Budesonide/Formoterol 160/4.5 1 PUFF INH IH SCH ×2 (10:22→21:26)
--- NOTE | 2018-08-17 12:21 | Internal Med Progress Note ---
<Delaney Reilly - Last Filed: 08/17/18 13:31> Hospitalist Progress Note - Encounter Date of Encounter: 08/17/18 - Exam Vitals: Temp Pulse Resp BP Pulse Ox 98.7 F 86 16 138/79 94 08/17/18 06:22 08/17/18 06:22 08/17/18 10:22 08/17/18 06:22 08/17/18 10:22 - Time Spent with Patient Total time spent is greater than 50% in coordination of care (as documented) at patient's floor/unit and/or counseling patient: Internal Medicine: Result - Labs CBC & Chem 7: 08/17/18 04:21 08/17/18 04:21 Labs: Short CBC 08/17/18 Range/Units 04:21 WBC 9.7 (4.3-11.1) K/mcL Hgb 11.7 D (11.5-15.4) g/dL Hct 36.5 (35.3-44.9) % Plt Count 241 (140-400) K/mcL Neutrophils # 6.8 (1.6-8.9) K/mcL BMP 08/17/18 04:21 Sodium 141 Potassium 4.2 Chloride 103 Carbon Dioxide 30 H BUN 35 H Creatinine 0.95 Glucose 113 H Calcium 9.8 Cardiac Enzymes 08/16/18 08/16/18 Range/Units 17:30 23:21 Troponin I < 0.03 < 0.03 (< 0.04) ng/mL Consult Discharge Plan - Plan Referrals: NONE,PCP [Primary Care Provider] - - Attending Attestation I examined this patient and my medical decision-making was reviewed with the Resident Physician Dr Silverman. I agree with the documented findings, disposition and treatment plan as described except to the extent set forth below. Ms Roman is being observed for pneumonia and acute hypoxic resp failure awake, no sob on o2, cough improving, no wheezing, no chest pain or pressure. less anxious today. daughter in law at bedside and discussed treatment plan. discussed abnormal ekg, noted prior to this admission and neg trops here. She was unaware of this in past and it has not been evaluated. we will get cards consult and pending recs she will then be medically stable for dc back to snf likely tomorrow. she is in agreement and happy with plan. gen- alert, awake,appears stated age, very hard of hearing cv- reg rate and rhythm, normal s1,s2, no murmurs appreciated, no le edema lungs- ctabl, no wheezing, rhonchi or crackles, normal resp effort on o2 nc abd- soft, non tender, non distended neuro- AAOx3, CN grossly intact Pneumonia, org uk, RLL -rocephin + azithro, nebs, PO steroids, bedside swallow eval normal -she will complete oral course of meds upon dc back to facility Acute Hypxoc resp failure? COPD Hx and unclear if pt is to be wearing o2 at SNF -cont o2 nc prn, treatment of pna as above -follow up for known lung nodules outpt Abnormal EKG with ST depressions in inferior leads and some precordial leads, present on prior ekgs- asx, trops neg have reviewed prior ekgs in [facility], st depressions can be identified on 10/05/17 ekg as well as 07/03/18 ekg to varying degrees quite clear on ekg follow up this morning -I have discussed with cards and will consult for review of ekgs and to determine if any inpt v outpt work up/ intervention required HTN-may add back acei, fu outpt for further bp monitoring MDD, severe, recurrent, with psychotic features- seen by psych, no inpt tx need ed, cont risperdal + remeron and fu outpt Known T12 compression fx- asx, imaging this admit with further height loss compared to last study, may fu oupt if sxs further diagnoses and plan as noted by resident plan is to dc to snf in next 24 hrs pending cards recs <Fran Silverman - Last Filed: 08/17/18 16:38> Hospitalist Progress Note - Encounter Date of Encounter: 08/17/18 Time of Encounter: 10:02 - Subjective Interval History: Patient was seen and examined up at since morning. She states that overall she is doing "lousy". When asked to elaborate, she is unable to. She reports continued decreased energy but thinks her breathing may be getting better. Continues to have a nonproductive cough. Denies any symptoms of chest pain, nausea, vomiting, pain at this time. - Exam Vitals: Temp Pulse Resp BP Pulse Ox 98.7 F 86 16 138/79 94 08/17/18 06:22 08/17/18 06:22 08/17/18 10:22 08/17/18 06:22 08/17/18 10:22 Exam: Gen.: Vitals noted. No acute distress. AAOx3, resting comfortably in bed. Thin appearing HEENT: PERRL/EOMI, oropharynx clear, Normocephalic, atraumatic, MMM Cardiac: RRR, no murmur, +S1/S2, No BLE edema Pulmonary: Decreased breath sounds in bilateral bases, otherwise clear to auscultation bilaterally, equal chest expansion, unlabored breathing Abdomen: soft, nontender, BS noted, no guarding, no palpable HSM Skin: warm and dry, no visible lesions. MSK: ROM not assessed, no joint swelling noted, gait no assessed while in bed. Non tender calf or clubbing Neuro: A&Ox3, moves all extremities, no focal deficits, sensation intact Psych: Appears mildly anxious, AOx3 - Assessment and Plan (1) Acute respiratory failure Current Visit: Yes Status: Acute Assessment and Plan: - Patient noted to be hypoxic on admission - Etiology is likely pneumonia with COPD exacerbation - Lungs are clear to auscultation today except for decreased breath sounds at bases. No wheezing appreciated - Chest x-ray in urgent care shows right lower lobe consolidation - CT scan at this facility does show a right lower lobe pneumonia with no obvious masses which were suspected on chest x-ray - She was started on ceftriaxone and azithromycin in the emergency room - Currently tolerating 2 L of oxygen, patient states that she is not on home oxygen Plan - We will continue ceftriaxone, azithromycin, day #3 - Continue by mouth prednisone, day #3 - Continue oxygen supplementation as necessary. Patient may require home oxygen on discharge (2) Abnormal EKG Current Visit: Yes Status: Acute Assessment and Plan: - First identified on telemetry yesterday - Noticed ST depressions in inferior lateral leads which were present on presentation however may be slightly worsened - Patient does not have any chest pain - Troponins trended 2 and were within normal limits - Discussed with patient's daughter, she has never had a workup for cardiac events - This was discussed with cardiology, they will evaluate the patient tomorrow Continue monitor If patient should develop chest pain or have worsening EKG findings or telem etry, recommend aspirin and again trending troponins (3) Acute exacerbation of chronic obstructive airways disease Current Visit: Yes Status: Acute Assessment and Plan: As above (4) HTN (hypertension) Current Visit: Yes Status: Chronic Assessment and Plan: Currently well-controlled Continue home medications (5) HLD (hyperlipidemia) Current Visit: Yes Status: Chronic Assessment and Plan: Continue home statin (6) Pneumonia Current Visit: Yes Status: Acute Assessment and Plan: As above (7) Diabetes Current Visit: Yes Status: Chronic Assessment and Plan: - Currently well controlled with blood sugars in the 100s - Hemoglobin A1c of 6.3% on 08/15-- actually prediabetes - No home medications - Is not on insulin - Continue diabetic diet (8) Major depressive disorder, recurrent, severe with psychotic features Current Visit: Yes Status: Acute Assessment and Plan: - Patient was noted to be possible suicidal ideation upon admission - She has been evaluated by psychiatry and diagnosed with MDD with psychotic features - Home medications include Risperdal, Remeron - Patient clarifies today that she is not suicidal but she does feel that people should pass when it is their time without suffering. - Will continue home meds - Psych recommending outpatient follow up and continuing current medications (9) DVT prophylaxis Current Visit: Yes Status: Acute Assessment and Plan: Subcutaneous heparin - Time Spent with Patient Total time spent is greater than 50% in coordination of care (as documented) at patient's floor/unit and/or counseling patient: Internal Medicine: Result - Labs CBC & Chem 7: 08/17/18 04:21 08/17/18 04:21 Labs: Short CBC 08/17/18 Range/Units 04:21 WBC 9.7 (4.3-11.1) K/mcL Hgb 11.7 D (11.5-15.4) g/dL Hct 36.5 (35.3-44.9) % Plt Count 241 (140-400) K/mcL Neutrophils # 6.8 (1.6-8.9) K/mcL BMP 08/17/18 04:21 Sodium 141 Potassium 4.2 Chloride 103 Carbon Dioxide 30 H BUN 35 H Creatinine 0.95 Glucose 113 H Calcium 9.8 Cardiac Enzymes 08/16/18 08/16/18 Range/Units 17:30 23:21 Troponin I < 0.03 < 0.03 (< 0.04) ng/mL <Fran Silverman - Last Filed: 08/17/18 16:38> (1) Acute respiratory failure Qualifiers: Respiratory failure complication: hypoxia Qualified Code(s): J96.01 - Acute respiratory failure with hypoxia (4) HTN (hypertension) Qualifiers: Hypertension type: essential hypertension Qualified Code(s): I10 - Essential (primary) hypertension (5) HLD (hyperlipidemia) Qualifiers: Hyperlipidemia type: unspecified Qualified Code(s): E78.5 - Hyperlipidemia, unspecified (6) Pneumonia Qualifiers: Pneumonia type: due to unspecified organism Laterality: right Lung location: lower lobe of lung Qualified Code(s): J18.1 - Lobar pneumonia, unspecified organism (7) Diabetes Qualifiers: Diabetes mellitus type: type 2 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
[2018-08-17] MEDS: Acetaminophen 325 MG TABLET PO PRN (21:46)
[2018-08-17] MEDS: Azithromycin 500 MG in D5% in Water 250 ML IVPB SCH (21:47)
[2018-08-17] MEDS: Mirtazapine 15 MG TABLET PO SCH (21:47)
[2018-08-18] MEDS: Ipratropium/Albuterol Neb 3 ML IH SCH ×3 (03:52→16:24)
[2018-08-18] MEDS: *HR* Heparin 5,000 UNIT/ML VIAL SQ SCH ×2 (05:48→17:47)
[2018-08-18 06:02] LABS: BUN/Creatinine Ratio 39 (6-26); Blood Urea Nitrogen 36 mg/dL (8-23); Calcium 10.1 mg/dL (8.6-10.3); Carbon Dioxide 31 mEq/L (23-29); Chloride 103 mEq/L (98-107); Glucose 100 mg/dL (70-105); Osmolality,Calculated 300 (280-300); Potassium 4.1 mEq/L (3.5-5.1); Sodium 141 mEq/L (136-145); eGFR For Non-African Americans 59 (> 60)
[2018-08-18] MEDS: Acetaminophen 325 MG TABLET PO PRN (06:25)
[2018-08-18] MEDS: Insulin LISPRO 300 UNITS/3 ML VIAL SQ SCH ×3 (07:58→16:34)
[2018-08-18] MEDS ORDERED: Lisinopril 20 MG TABLET PO SCH (09:00)
[2018-08-18] MEDS: Aspirin Enteric Coated 81 MG Tablet PO SCH (09:25)
[2018-08-18] MEDS: predniSONE 20 MG TABLET PO SCH (09:26)
[2018-08-18] MEDS: risperiDONE 1 MG TABLET PO SCH ×2 (09:26→20:12)
[2018-08-18] MEDS: cefTRIAXone 1,000 MG in Water for inj. (sterile) 20 ML 10 ML IVP SCH (09:26)
--- NOTE | 2018-08-18 10:04 | Electrocardiograph Report ---
[address] [address] Test Date: 2018-08-16 Pat Name: Mercy Roman Department: 114 Room: [facility] Gender: F Pre Planning Advisor: : 1935 Requested By: Fran Silverman Order Number: [id number] Reading MD: Candido Lal Measurements Intervals [place] Rate: 91 P: 71 OR: 118 QRS: -21 QRSD: 76 T: 62 QT: 324 QTc: 373 Interpretive Statements SINUS RHYTHM WITH SHORT OR INTERVAL POSSIBLE LEFT ATRIAL ENLARGEMENT BORDERLINE LEFT AXIS DEVIATION Electronically Signed On 08-18-2018 10:03:07 EDT by Candido Lal
--- NOTE | 2018-08-18 10:16 | Electrocardiograph Report ---
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
[2018-08-18] MEDS: Budesonide/Formoterol 160/4.5 1 PUFF INH IH SCH (10:19)
--- NOTE | 2018-08-18 10:54 | Cardiology Consult Note ---
Date of Encounter: 08/18/18 Time of Encounter: 10:52 Assessment and Plan (1) Abnormal EKG Current Visit: Yes Status: Acute Pt presented to ED for cough, found to have PNA with management per hospitalist. Consulted for abnormal ECG. ECG is unchanged from prior. Possible prior anteroseptal infarct. No acute ischemic changes. Pt denies chest pain or cardiac hx. Seems confused at times. Resides in SNF. Troponin negative x 2. TTE 04/2016 LVEF 60-65%. Normal LV chamber size and function. Mild cLVH. Mild LVDD. Normal RV structure and function. Mild AR. Mild TR. Borderline mild phtn. Estimated RVSP is 35 mmHg. Do not anticipate any further inpt cardiac testing. Will discuss and review with Dr. Lal. Discussion w patient/family: The assessment and plan as outlined above was discussed with the patient and/or family members who expressed understanding and agreement. All questions were answered. Thank you for involving us in the care of your patient. Please call with any questions. I will discuss all the above with Dr. Lal and make changes as necessary. History of Present Illness Consult date: 08/18/18 Consult reason: ECG changes Chief complaint: dyspnea History of present illness: Ms. Roman is a 83 year old female with PMH HTN, HLD, COPD that presented to the ED with a cough. She is a resident at a [facility], and had a cough for 3 days prior to admission, productive of yellow sputum. Chest CT was performed that showed new right lower lobe airspace disease compatible with pneumonia. Ca rdiology consulted for abnormal ECG. Pt denies chest pain. Prior CV testing: TTE 04/2016: LVEF 60-65%. Normal LV chamber size and function. Mild cLVH. Mild LVDD. Normal RV structure and function. Mild AR. Mild TR. Borderline mild phtn. Estimated RVSP is 35 mmHg. Past Med Surg Social Fam HX - Past Medical History Medical history: COPD, hyperlipidemia, hypertension Psychiatric history: depression - Social History Smoking Status: Current every day smoker Smokeless Tobacco Status: No Alcohol use: none Drug use: none - Family History Mother Living Status: Hx Family Cardiac Disorders: No Hx Family Respiratory Disorders: Yes (COPD) Hx Family Cancer: Yes (brother) Hx Family GI Disorders: No Hx Family Endocrine Disorder: No Hx Family Neuromuscular Disorders: No Hx Family Neurologic Disorders: No Hx Family HEENT Disorders: No Hx Family Autoimmune Disorders: No Grandfather Hx Family Cardiac Disorders: Yes ([place]) Medications and Allergies Lisinopril [Zestril] 40 mg PO DAILY 09/07/17 [History] Montelukast [Singulair] 10 mg PO QPM 05/28/18 [History] risperiDONE [Risperidone] 1 mg PO BID 05/28/18 [History] Acetaminophen [Tylenol] 325 - 650 mg PO TID PRN 07/04/18 [History] Aspirin [Lo-Dose Aspirin EC] 81 mg PO DAILY 07/04/18 [History] Atorvastatin [Lipitor] 10 mg PO DAILY 07/04/18 [History] Cholecalciferol (Vitamin D3) [Vitamin D3] 5,000 unit PO DAILY 07/04/18 [History] Melatonin 5 mg PO HS PRN 07/04/18 [History] Budesonide/Formoterol 160/4.5 [Symbicort 160/4.5] 2 puff IH BIDR #1 hfa.aer.ad 07/05/18 [Rx] Albuterol Sulfate [Ventolin Hfa] 2 puff IH Q4H PRN 08/14/18 [History] Docusate [Colace] 100 mg PO BID PRN 08/14/18 [History] Mirtazapine [Remeron] 30 mg PO HS 08/14/18 [History] Polyethylene Glycol 3350 [MiraLAX] 17 gm PO DAILY PRN 08/14/18 [History] Allergy/AdvReac Type Severity Reaction Status Date / Time Mercury (Elemental) Allergy Rash Verified 03/15/18 07:49 All Systems Review: The remainder of the systems were reviewed and are negative - Cardiovascular Cardiovascular: as per HPI, dyspnea at rest, dyspnea on exertion - Respiratory Respiratory: cough, dyspnea Physical Examination Vital Signs, Last 4 Hours Temp Pulse Resp BP Pulse Ox 08/18/18 10:21 16 94 08/18/18 09:00 93 08/18/18 07:11 98.3 F 75 15 175/81 93 Vital Signs Temp Pulse Resp BP Pulse Ox 08/18/18 10:21 16 94 08/18/18 09:00 93 08/18/18 07:11 98.3 F 75 15 175/81 93 05/20/19 05:55 80 148/93 05/20/19 03:53 16 164/89 95 08/18/18 03:07 97.8 F 78 16 164/89 96 08/17/18 23:35 97.7 F 79 14 153/76 95 08/17/18 21:29 16 93 08/17/18 18:58 97.9 F 83 15 135/76 94 08/17/18 15:42 16 97 Intake and Output 08/17/18 08/18/18 08/18/18 23:59 07:59 15:59 Intake Total 600 / 860 0 / 210 210 / 210 Output Total 0 / 300 Balance 600 / 560 0 / 210 210 / 210 Intake: IV Fluids Rocephin 1,000 MG In Water for inj. (sterile) 10 ML @ 600 mls/ hr IVP DAILY [facility] Rx#:[id number] Oral 600 / 850 0 / 200 200 / 200 Output: Urine 0 / 300 Other: Meal Breakfast Percent of Meal Consumed 20% # Voids 1 1 Weight 46.33 kg Blood Glucose* 186 120 Patient Weight 08/18/18 23:59 Weight 46.33 kg General: Conversant, No Apparent Distress HEENT: Atraumatic, Normocephaly, Mucus Membranes Moist Neck: No JVD, Normal carotid pulses Cardiac: Reg Rate and Rhythm, Normal S1 and S2, No Murmur Lungs: Other (diminished) Neuro: Alert and responsive, Other (confused at times) Abdomen: Soft, Non-Tender Skin: No rashes noted on visualized skin Musculoskeletal: No Chest Wall Tenderness Extremities: No Clubbing, No Cyanosis, No Edema, Normal Pulses Results 08/17/18 04:21 08/18/18 05:12 Lab Results 08/18/18 05:12 Sodium 141 Potassium 4.1 Chloride 103 Carbon Dioxide 31 H BUN 36 H Creatinine 0.92 Glucose 100 Calcium 10.1 BMP 08/18/18 Range/Units 05:12 Sodium 141 (136-145) mEq/L Potassium 4.1 (3.5-5.1) mEq/L Chloride 103 (98-107) mEq/L Carbon Dioxide 31 H (23-29) mEq/L BUN 36 H (8-23) mg/dL Creatinine 0.92 (0.60-1.20) mg/dL Glucose 100 (70-105) mg/dL Calcium 10.1 (8.6-10.3) mg/dL Active Medications Acetaminophen (Tylenol) 650 mg PO Q6HR PRN PRN Reason: Pain Stop: 02/15/19 21:11 Last Admin: 08/18/18 06:25 Dose: 650 mg Documented by: Albuterol Sulfate (Proventil Neb) 2.5 mg IH Q2H PRN PRN Reason: Shortness Of Breath/Wheezing Stop: 02/14/19 04:50 Albuterol/Ipratropium (Duoneb) 3 ml IH QIDR [facility] Stop: 02/14/19 05:01 Last Admin: 08/18/18 10:19 Dose: 3 ml Documented by: Aspirin (Aspirin Ec) 81 mg PO DAILY [facility] Stop: 02/15/19 09:01 Last Admin: 08/18/18 09:25 Dose: 81 mg Documented by: Atorvastatin Calcium (Lipitor) 10 mg PO DAILY [facility] Stop: 02/15/19 09:01 Last Admin: 08/18/18 09:26 Dose: 10 mg Documented by: Budesonide/Formoterol Fumarate (Symbicort) 2 puff IH BIDR [facility]; Protocol Stop: 02/14/19 10:16 Last Admin: 08/18/18 10:19 Dose: 2 puff Documented by: Dextrose/Water (Dextrose 50% (Syg)) 25 ml IVP AD PRN PRN Reason: Hypoglycemia Stop: 02/15/19 18:08 Docusate Sodium (Colace) 100 mg PO BID PRN; Protocol PRN Reason: Constipation Stop: 02/14/19 10:12 Glucagon (Glucagen) 1 mg IM ONCE PRN PRN Reason: Hypoglycemia Stop: 02/15/19 18:08 Glucose (Gluctose) 15 gm PO ONCE PRN PRN Reason: Hypoglycemia Stop: 02/15/19 18:08 Glucose (Gluctose) 30 gm PO ONCE PRN PRN Reason: Hypoglycemia Stop: 02/15/19 18:08 Heparin Sodium (Porcine) (Heparin) 5,000 unit SQ Q12HCO [facility] Stop: 02/14/19 06:01 Last Admin: 08/18/18 05:48 Dose: 5,000 unit Documented by: Azithromycin 500 mg/ Dextrose 250 mls @ 252 mls/hr IVPB Q24H [facility] Stop: 02/14/19 21:01 Last Admin: 08/17/18 21:47 Dose: 252 mls/hr Documented by: Ceftriaxone Sodium 1,000 mg/ (Sterile Water) 10 mls @ 600 mls/hr IVP DAILY [facility] Stop: 02/14/19 09:01 Last Infusion: 08/18/18 09:30 Dose: Infused Documented by: Dextrose (Dextrose 5%) 1,000 mls @ 100 mls/hr IVC .Q10H PRN PRN Reason: HYPOGLYCEMIA Stop: 02/15/19 18:08 Insulin Human Lispro (Humalog) 0 units SQ TIDAC [facility]; Protocol Stop: 02/16/19 07:31 Last Admin: 08/18/18 07:58 Dose: Not Given Documented by: Insulin Human Lispro (Humalog) 0 units SQ HS [facility]; Protocol Stop: 02/15/19 21:01 Last Admin: 08/17/18 21:47 Dose: Not Given Documented by: Lisinopril (Zestril) 40 mg PO DAILY [facility]; Protocol Stop: 02/17/19 09:01 Last Admin: 08/18/18 09:26 Dose: 40 mg Documented by: Melatonin (Melatonin) 6 mg PO HS PRN PRN Reason: Sleep Mirtazapine (Remeron) 30 mg PO HS [facility] Stop: 02/14/19 21:01 Last Admin: 08/17/18 21:47 Dose: 30 mg Documented by: Montelukast Sodium (Singulair) 10 mg PO QPM [facility] Stop: 02/14/19 18:01 Last Admin: 08/17/18 19:01 Dose: 10 mg Documented by: Naloxone HCl (Narcan) 0.4 mg IVP Q2MPRN PRN PRN Reason: SEE COMMENTS Stop: 02/14/19 04:28 Prednisone (Prednisone) 40 mg PO DAILY [facility] Stop: 02/14/19 09:01 Last Admin: 08/18/18 09:26 Dose: 40 mg Documented by: Risperidone (Risperdal) 1 mg PO BID [facility] Stop: 02/14/19 21:01 Last Admin: 08/18/18 09:26 Dose: 1 mg Documented by: - Imaging and Cardiology Echo: report reviewed - EKG Interpretation EKG results cardiology: personally reviewed Consult Discharge Plan - Plan Referrals: NONE,PCP [Primary Care Provider] -
--- NOTE | 2018-08-18 13:20 | Discharge Summary ---
<TommieDelaney M - Last Filed: 08/18/18 14:01> - NOTES TO OUTPATIENT PROVIDER Notes to Outpatient Provider: complete oral antibiotic and prednisone course as prescribed. has chronically abnormal EKG. cArds evaluated and no immediate intervention necessary at this time. If develops symptoms outpt would rec discussion with pt for possible work up/intervention. Psychiatry also saw her for mood and anxiety. They rec cont home meds and follow up outpt for mental health. She has a known T12 compression fracture, imaging showed increased height loss this admission. She is asymptomatic. Defer to outpt provider for work up/intervention if develops symptoms. Would benefit from PT/OT at home. Orders not resulted at time of discharge: Pending orders 08/14/18 23:30 Culture,Blood [BC] Stat 08/16/18 11:00 Bedside Swallowing Evaluation [EVAL] Routine Date of Encounter: 08/18/18 - Discharge Diagnosis (1) Acute exacerbation of chronic obstructive airways disease Status: Acute (2) HTN (hypertension) Status: Chronic Qualifiers: Hypertension type: essential hypertension Qualified Code(s): I10 - Essential (primary) hypertension (3) HLD (hyperlipidemia) Status: Chronic Qualifiers: Hyperlipidemia type: unspecified Qualified Code(s): E78.5 - Hyperlipidemia, unspecified (4) DVT prophylaxis Status: Acute (5) Pneumonia Status: Acute Qualifiers: Pneumonia type: due to unspecified organism Laterality: right Lung location: lower lobe of lung Qualified Code(s): J18.1 - Lobar pneumonia, unspecified organism (6) Diabetes Status: Chronic Qualifiers: Diabetes mellitus type: type 2 Diabetes mellitus intermodal customer service insulin use: without intermodal customer service use Diabetes mellitus complication status: with hyperglycemia Qualified Code(s): E11.65 - Type 2 diabetes mellitus with hyperglycemia (7) Major depressive disorder, recurrent, severe with psychotic features Status: Chronic (8) Acute respiratory failure Status: Resolved Qualifiers: Respiratory failure complication: hypoxia Qualified Code(s): J96.01 - Acute respiratory failure with hypoxia (9) Abnormal EKG Status: Chronic Hospital course: Ms. Roman is a 83 year old female - Time Spent with Patient Total time spent providing and/or coordinating discharge services: Time spent: Greater than 30 minutes (35 min) - Discharge Medications Prescriptions: New Azithromycin 250 mg PO DAILY #1 tablet Ipratropium/Albuterol Neb [Duoneb] 3 ml IH QIDR PRN #10 inhsol PRN Reason: Wheezing Cefdinir [Omnicef] 300 mg PO BID #2 capsule predniSONE [PredniSONE] 40 mg PO DAILY #2 tablet Continued Lisinopril [Zestril] 40 mg PO DAILY Montelukast [Singulair] 10 mg PO QPM risperiDONE [Risperidone] 1 mg PO BID Acetaminophen [Tylenol] 325 - 650 mg PO TID PRN PRN Reason: PAIN/ FEVER Aspirin [Lo-Dose Aspirin EC] 81 mg PO DAILY Atorvastatin [Lipitor] 10 mg PO DAILY Cholecalciferol (Vitamin D3) [Vitamin D3] 5,000 unit PO DAILY Melatonin 5 mg PO HS PRN PRN Reason: Sleep Budesonide/Formoterol 160/4.5 [Symbicort 160/4.5] 2 puff IH BIDR #1 hfa.aer.ad Mirtazapine [Remeron] 30 mg PO HS Albuterol Sulfate [Ventolin Hfa] 2 puff IH Q4H PRN PRN Reason: Shortness Of Breath Docusate [Colace] 100 mg PO BID PRN PRN Reason: Constipation Polyethylene Glycol 3350 [MiraLAX] 17 gm PO DAILY PRN PRN Reason: Constipation Home Medications: Lisinopril [Zestril] 40 mg PO DAILY 09/07/17 [History] Montelukast [Singulair] 10 mg PO QPM 05/28/18 [History] risperiDONE [Risperidone] 1 mg PO BID 05/28/18 [History] Acetaminophen [Tylenol] 325 - 650 mg PO TID PRN 07/04/18 [History] Aspirin [Lo-Dose Aspirin EC] 81 mg PO DAILY 07/04/18 [History] Atorvastatin [Lipitor] 10 mg PO DAILY 07/04/18 [History] Cholecalciferol (Vitamin D3) [Vitamin D3] 5,000 unit PO DAILY 07/04/18 [History] Melatonin 5 mg PO HS PRN 07/04/18 [History] Budesonide/Formoterol 160/4.5 [Symbicort 160/4.5] 2 puff IH BIDR #1 hfa.aer.ad 07/05/18 [Rx] Albuterol Sulfate [Ventolin Hfa] 2 puff IH Q4H PRN 08/14/18 [History] Docusate [Colace] 100 mg PO BID PRN 08/14/18 [History] Mirtazapine [Remeron] 30 mg PO HS 08/14/18 [History] Polyethylene Glycol 3350 [MiraLAX] 17 gm PO DAILY PRN 08/14/18 [History] Azithromycin 250 mg PO DAILY #1 tablet 08/18/18 [Rx] Cefdinir [Omnicef] 300 mg PO BID #2 capsule 08/18/18 [Rx] Ipratropium/Albuterol Neb [Duoneb] 3 ml IH QIDR PRN #10 inhsol 08/18/18 [Rx] predniSONE [PredniSONE] 40 mg PO DAILY #2 tablet 08/18/18 [Rx] Allergies/Adverse Reactions: Allergy/AdvReac Type Severity Reaction Status Date / Time Mercury (Elemental) Allergy Rash Verified 03/15/18 07:49 Date of admission: 08/16/18 15:58 Primary care physician: PCP NONE Consults: 08/15/18 04:49 Consult to Nurse Navigator [CONS] Routine Comment: 08/15/18 04:51 Consult to Psychiatry [CONS] Routine Consulting Provider: Psychiatry [facility] Reason consult: Other Other reason and/or additional details: Possible suicidal ideation Call Completed: No 08/15/18 14:43 Consult to Tractor Trailer Mechanic [CONS] Routine Reason for SW Consult: placement 08/17/18 12:06 Consult to Cardiology [CONS] Routine Comment: Consulting Provider: Cardiology [facility] Reason for Consult: abnormal ekg with st depressions, neg trops, eval for inpt vs outpt work up/intervention Call Completed: Yes - Constitutional Vitals: Temp Pulse Resp BP Pulse Ox 97.9 F 101 16 139/74 93 08/18/18 11:39 08/18/18 11:39 08/18/18 11:39 08/18/18 11:39 08/18/18 11:39 - Patient Status Disposition: Transfer Other Condition: Fair - Discharge Instructions Follow Up With: NONE,PCP [Primary Care Provider] - - Attending Attestation I examined this patient and my medical decision-making was reviewed with the Resident Physician Dr Silverman. I agree with the documented findings, disposition and treatment plan as described except to the extent set forth below. Ms Roman is admitted for pneumonia and acute hypoxic resp failure. She is medically stable for dc back to assisted living facility. awake, no sob , compliant with o2 nc. denies cough or wheezing. got poor sleep overnight, otherwise no compalints. no cp. no family present. team discussed dc plan with family at bedside later in morning and all questions answered gen- alert, awake,appears stated age, very hard of hearing cv- reg rate and rhythm, normal s1,s2, no le edema lungs- ctabl, no wheezing, rhonchi or crackles, normal resp effort on o2 nc abd- soft, non tender, non distended neuro- AAOxperson, palce, sitaution Pneumonia, org uk, RLL bedside swallow eval normal this admit -rocephin + azithro while inpt -PO steroid to complete burst -she will complete oral course of abx upon dc back to facility to complete pna treatment Chronic Hypoxic resp failure SW confirmed has home o2 and non compliant with wearing it -cont o2 nc prn, treatment of pna as above -follow up for known lung nodules outpt Abnormal EKG with ST depressions in inferior leads and some precordial leads, present on prior ekgs- asx, trops neg -cards has reviewed, given chronicity and co morbidities no further testing is necessary at this time, she may follow up with outpt providers HTN-stable, cont home regimen at dc, fu outpt for further bp monitoring MDD, severe, recurrent, with psychotic features- seen by psych, no inpt tx needed, cont risperdal + remeron home dosing and fu outpt Known T12 compression fx- asx, imaging this admit with further height loss compared to last study, may fu oupt if sxs further diagnoses and plan as noted by resident time spent on dc 35 min <Fran Silverman - Last Filed: 08/18/18 15:10> - NOTES TO OUTPATIENT PROVIDER Notes to Outpatient Provider: would benefit from physical therpy as outpatient. Admitted for care acquired pneumonia with COPD exacerbation. Has one more day of antibiotics and prednisone to complete. Has a chronically abnormal EKG and was very limited by cardiology with no immediate intervention. Will be discharged to assisted living. Orders not resulted at time of discharge: Pending orders 08/14/18 23:30 Culture,Blood [BC] Stat 08/16/18 11:00 Bedside Swallowing Evaluation [EVAL] Routine Date of Encounter: 08/18/18 Time of Encounter: 10:03 - Discharge Diagnosis (1) Acute respiratory failure Priority: Primary Status: Resolved Qualifiers: Respiratory failure complication: hypoxia Qualified Code(s): J96.01 - Acute respiratory failure with hypoxia (2) Abnormal EKG Priority: Secondary Status: Chronic (3) Acute exacerbation of chronic obstructive airways disease Priority: Secondary Status: Acute (4) HTN (hypertension) Priority: Secondary Status: Chronic Qualifiers: Hypertension type: essential hypertension Qualified Code(s): I10 - Essential (primary) hypertension (5) HLD (hyperlipidemia) Priority: Secondary Status: Chronic Qualifiers: Hyperlipidemia type: unspecified Qualified Code(s): E78.5 - Hyperlipidemia, unspecified (6) Pneumonia Priority: Secondary Status: Acute Qualifiers: Pneumonia type: due to unspecified organism Laterality: right Lung location: lower lobe of lung Qualified Code(s): J18.1 - Lobar pneumonia, unspecified organism (7) Diabetes Priority: Secondary Status: Chronic Qualifiers: Diabetes mellitus type: type 2 Diabetes mellitus usp insulin use: without usp use Diabetes mellitus complication status: with hyperglycemia Qualified Code(s): E11.65 - Type 2 diabetes mellitus with hyperglycemia (8) Major depressive disorder, recurrent, severe with psychotic features Priority: Secondary Status: Chronic (9) DVT prophylaxis Priority: Secondary Status: Acute Hospital course: Ms. Roman is a 83 year old female with past medical history of COPD, hyperlipidemia, hypertension, major depressive disorder. She presented to the emergency room with complaint of cough with productive yellow sputum. She init ially presented to urgent care. A chest x-ray which was concerning for possible mass and was then sent to the emergency room. Upon presentation to [facility], vital signs were significant for 93% oxygen on 2 L which she has on home. Laboratory results showed leukocytosis of 14.9. Chest CT was obtained and showed right lower lobe airspace disease compatible with pneumonia and suspected mass is now described as nodules without obvious mass. She was admitted for suspected community-acquired pneumonia with exacerbation of COPD. There was some concern on admission for suicidal ideation and she was evaluated by psychiatry who determined that she has not eligible for inpatient psychiatric admission as she is not currently experiencing suicidal ideation, she just clarifies that she is comfortable with the thought of and does not want to prolong anything. She was treated with a 5 day course of Rocephin and azithromycin as well as prednisone. During course possible stay, she did gradually improve in her symptoms. She is currently requiring 2 L of oxygen which is her home dose. Laboratory results are now at baseline levels. There was also some concern for an abnormal telemetry reading. EKG was obtained and showed ST depressions in leads 2, aVF, V5, V4. These were present on admission and patient had experienced some chest pain. She was evaluated by cardiology who states that these are likely chronic changes with no acute ischemia or infarct. Troponins were negative. No acute cardiology intervention advised at this time. She will be discharged back to assisted living in stable medical condition with instructions to follow up with her primary care physician and take all medications as prescribed. She would benefit from outpatient physical therapy. Discharge discussed with: patient, family, social work, case management - Time Spent with Patient Total time spent providing and/or coordinating discharge services: Date of admission: 08/16/18 15:58 Primary care physician: PCP NONE Consults: 08/15/18 04:49 Consult to Nurse Navigator [CONS] Routine Comment: 08/15/18 04:51 Consult to Psychiatry [CONS] Routine Consulting Provider: Psych[facility] Reason consult: Other Other reason and/or additional details: Possible suicidal ideation Call Completed: No 08/15/18 14:43 Consult to Tractor Trailer Mechanic [CONS] Routine Reason for SW Consult: placement 08/17/18 12:06 Consult to Cardiology [CONS] Routine Comment: Consulting Provider: Cardiology [facility] Reason for Consult: abnormal ekg with st depressions, neg trops, eval for inpt vs outpt work up/intervention Call Completed: Yes Discharging clinician: Fran Silverman Anticipated date of discharge: 08/18/18 - Constitutional Vitals: Temp Pulse Resp BP Pulse Ox 97.9 F 101 16 139/74 93 08/18/18 11:39 08/18/18 11:39 08/18/18 11:39 08/18/18 11:39 08/18/18 11:39 General appearance: Present: cooperative, A&O X 3, pleasant, no acute distress, answers questions appropriately Exam: Gen.: Vitals noted. No acute distress. AAOx3, resting comfortably in bed. Thin appearing HEENT: PERRL/EOMI, oropharynx clear, Normocephalic, atraumatic, MMM Cardiac: RRR, no murmur, +S1/S2, No BLE edema Pulmonary: Decreased breath sounds in bilateral bases, otherwise clear to auscultation bilaterally, equal chest expansion, unlabored breathing Abdomen: soft, nontender, BS noted, no guarding, no palpable HSM Skin: warm and dry, no visible lesions. MSK: ROM not assessed, no joint swelling noted, gait no assessed while in bed. Non tender calf or clubbing Neuro: A&Ox3, moves all extremities, no focal deficits, sensation intact Psych: Appears mildly anxious, AOx3 - Patient Status Functional capacity at discharge: uses cane/walker Overall status at discharge: patient is progressing back to baseline - Diet and Activity Activity: increase activity as tolerated, return to work once cleared by your PCP/specialist, resume usual activities as tolerated, wear oxygen at all times Diet: advance to your usual diet
[2018-08-18 14:28] VITALS: BP 158/84
[2018-08-18] MEDS: Mirtazapine 15 MG TABLET PO SCH (20:12)
== END 2018-08-18 20:15 | disposition other institution (70) | DRG 193 ==
LOC: 3NENU 19:41 → EMEROOARM 19:41 → SUATTDRO 08-15 00:35 → 3NENU 08-15 01:29
PROVIDERS: ADMIT Family Medicine; ATTEND Internal Medicine

== ENCOUNTER 2019-02-16 13:49 | Inpatient (IN) ==
[2019-02-16] MEDS ORDERED: 0.9 % Sodium Chloride 1,000 ML IVC STA (14:25)
[2019-02-16 14:49] LABS: Hematocrit 40.8 % (35.3-44.9); Hemoglobin 13.4 g/dL (11.5-15.4); Mean Corpuscular HGB Conc 32.8 g/dL (31.6-35.5); Mean Corpuscular Hemoglobin 29.4 pg (28.0-33.3); Mean Corpuscular Volume 89.5 fL (83.0-100.0); Mean Platelet Volume 11.4 fL (9.4-12.4); Platelet Count 293 K/mcL (140-400); Red Blood Count 4.56 M/mcL (3.82-4.97); Red Cell Distribution Width 13.6 % (11.5-14.5); White Blood Count 15.5 K/mcL (4.3-11.1)
[2019-02-16 14:56] LABS: INR 1.2; Prothrombin Time 13.4 Seconds (9.4-12.1)
[2019-02-16 14:59] LABS: Activated Partial Thrombo Time 27.6 Seconds (26.0-36.0)
[2019-02-16 15:15] LABS: Calcium 10.5 mg/dL (8.6-10.3); Potassium 3.6 mEq/L (3.5-5.1)
[2019-02-16 15:18] LABS: Troponin I 0.16 ng/mL (< 0.04)
[2019-02-16] MEDS ORDERED: Aspirin 81 MG TAB.CHEW PO STA (15:26)
[2019-02-16] MEDS ORDERED: Piperacillin/Tazobactam 3.375 GM in 0.9 % Sodium Chloride Mini Bag 100 ML IVPB ONE (16:45)
[2019-02-16] MEDS ORDERED: 0.9 % Sodium Chloride 500 ML IVC ONE (16:46)
[2019-02-16 16:50] LABS: Bilirubin,Urine Negative (Negative); Blood,Urine Moderate (Negative); Clarity,Urine Cloudy (Clear); Color,Urine Yellow (Yellow); Glucose,Urine (UA) Normal (Normal); Hyaline Casts,Urine Moderate per lpf (None-Few); Ketones,Urine Negative (Negative); Leukocyte Esterase,Urine Small (Negative); Nitrite,Urine Negative (Negative); PH,Urine 5.5 pH Units (5.0-8.0); Protein,Urine Negative (Neg-Trace); Specific Gravity,Urine 1.011 (1.010-1.025); Squamous Epithelial Cell,Urine Many per lpf (None-Few); Urobilinogen,Urine Normal (Normal)
[2019-02-16 17:00] LABS: Bacteria,Urine Many per hpf (None-Few); Renal Epithelial Cells,Urine Few per hpf (None-Few)
[2019-02-16] MEDS ORDERED: Azithromycin 500 MG in 0.9 % Sodium Chloride 250 ML IVPB ONE (17:02)
[2019-02-16] MEDS ORDERED: Naloxone 0.4 MG/ML INJ IVP PRN (17:27)
[2019-02-16] MEDS: Budesonide/Formoterol 160/4.5 1 PUFF INH IH SCH (21:46)
[2019-02-16] MEDS: risperiDONE 1 MG TABLET PO SCH (22:19)
[2019-02-17 04:15] LABS: Basophils # 0.1 K/mcL (0.0-0.2); Basophils % 0.4 %; Eosinophils # 0.2 K/mcL (0.0-0.6); Eosinophils % 1.3 %; Hematocrit 33.3 % (35.3-44.9); Immature Granulocytes % 0.6 % (0-4); Lymphocytes # 1.7 K/mcL (0.6-4.6); Lymphocytes % 14.5 %; Mean Corpuscular HGB Conc 31.5 g/dL (31.6-35.5); Mean Corpuscular Hemoglobin 29.6 pg (28.0-33.3); Mean Corpuscular Volume 93.8 fL (83.0-100.0); Mean Platelet Volume 11.4 fL (9.4-12.4); Monocytes # 1.1 K/mcL (0.0-1.3); Monocytes % 9.2 %; Neutrophils # 8.8 K/mcL (1.6-8.9); Platelet Count 234 K/mcL (140-400); Red Blood Count 3.55 M/mcL (3.82-4.97); Red Cell Distribution Width 13.5 % (11.5-14.5); White Blood Count 11.9 K/mcL (4.3-11.1)
[2019-02-17 04:17] LABS: Hemoglobin 10.5 g/dL (11.5-15.4)
[2019-02-17 04:37] LABS: BUN/Creatinine Ratio 22 (6-26); Blood Urea Nitrogen 23 mg/dL (8-23); Calcium 8.7 mg/dL (8.6-10.3); Carbon Dioxide 24 mEq/L (23-29); Chloride 111 mEq/L (98-107); Glucose 93 mg/dL (70-105); Osmolality,Calculated 299 (280-300); Potassium 3.7 mEq/L (3.5-5.1); Sodium 143 mEq/L (136-145); eGFR For African Americans > 60 (> 60); eGFR For Non-African Americans 50 (> 60)
[2019-02-17] MEDS: Budesonide/Formoterol 160/4.5 1 PUFF INH IH SCH ×2 (07:46→20:27)
[2019-02-17] MEDS: cefTRIAXone 2,000 MG in Water for inj. (sterile) 20 ML IVP SCH (09:27)
[2019-02-17] MEDS: Azithromycin 500 MG in 0.9 % Sodium Chloride 250 ML IVPB SCH (09:34)
[2019-02-17] MEDS: Cholecalciferol (D-3) 1,000 UNIT (25MCG) TABLET PO SCH (09:35)
[2019-02-17] MEDS: Lisinopril 20 MG TABLET PO SCH (09:35)
[2019-02-17] MEDS: risperiDONE 1 MG TABLET PO SCH ×2 (09:35→20:12)
[2019-02-17] MEDS: Apixaban 5 MG TABLET PO SCH (20:13)
[2019-02-17] MEDS ORDERED: Mirtazapine 15 MG TABLET PO SCH (21:00)
[2019-02-18 04:33] LABS: Basophils # 0.1 K/mcL (0.0-0.2); Basophils % 0.6 %; Eosinophils # 0.2 K/mcL (0.0-0.6); Eosinophils % 1.7 %; Hemoglobin 11.2 g/dL (11.5-15.4); Lymphocytes # 1.8 K/mcL (0.6-4.6); Lymphocytes % 16.1 %; Mean Corpuscular HGB Conc 31.1 g/dL (31.6-35.5); Mean Corpuscular Hemoglobin 29.3 pg (28.0-33.3); Mean Corpuscular Volume 94.2 fL (83.0-100.0); Mean Platelet Volume 11.6 fL (9.4-12.4); Monocytes # 1.1 K/mcL (0.0-1.3); Monocytes % 9.7 %; Neutrophils # 7.7 K/mcL (1.6-8.9); Platelet Count 252 K/mcL (140-400); Red Blood Count 3.82 M/mcL (3.82-4.97); Red Cell Distribution Width 13.5 % (11.5-14.5); Segmented Neutrophils % 70.9 %; White Blood Count 10.9 K/mcL (4.3-11.1)
[2019-02-18 04:56] LABS: BUN/Creatinine Ratio 18 (6-26); Blood Urea Nitrogen 15 mg/dL (8-23); Carbon Dioxide 21 mEq/L (23-29); Chloride 109 mEq/L (98-107); Glucose 93 mg/dL (70-105); Osmolality,Calculated 289 (280-300); Potassium 3.7 mEq/L (3.5-5.1); Sodium 139 mEq/L (136-145); eGFR For African Americans > 60 (> 60); eGFR For Non-African Americans > 60 (> 60)
[2019-02-18] MEDS: Budesonide/Formoterol 160/4.5 1 PUFF INH IH SCH ×2 (07:41→20:07)
[2019-02-18] MEDS: cefTRIAXone 2,000 MG in Water for inj. (sterile) 20 ML IVP SCH (09:29)
[2019-02-18] MEDS: Apixaban 5 MG TABLET PO SCH ×2 (09:30→22:25)
[2019-02-18] MEDS: Cholecalciferol (D-3) 1,000 UNIT (25MCG) TABLET PO SCH (09:30)
[2019-02-18] MEDS: risperiDONE 1 MG TABLET PO SCH (09:30)
[2019-02-18] MEDS: Lisinopril 20 MG TABLET PO SCH (09:31)
[2019-02-18] MEDS: Azithromycin 500 MG in 0.9 % Sodium Chloride 250 ML IVPB SCH (09:31)
[2019-02-18] MEDS ORDERED: Acetaminophen 325 MG TABLET PO PRN (11:03)
[2019-02-19 05:32] LABS: Basophils # 0.1 K/mcL (0.0-0.2); Basophils % 0.8 %; Eosinophils # 0.3 K/mcL (0.0-0.6); Eosinophils % 3.3 %; Hematocrit 36.2 % (35.3-44.9); Immature Granulocytes % 1.5 % (0-4); Lymphocytes # 1.6 K/mcL (0.6-4.6); Lymphocytes % 16.7 %; Mean Corpuscular HGB Conc 33.1 g/dL (31.6-35.5); Mean Corpuscular Hemoglobin 29.9 pg (28.0-33.3); Mean Corpuscular Volume 90.3 fL (83.0-100.0); Mean Platelet Volume 11.5 fL (9.4-12.4); Monocytes % 10.8 %; Neutrophils # 6.2 K/mcL (1.6-8.9); Platelet Count 268 K/mcL (140-400); Red Blood Count 4.01 M/mcL (3.82-4.97); Red Cell Distribution Width 13.6 % (11.5-14.5); Segmented Neutrophils % 66.9 %; White Blood Count 9.3 K/mcL (4.3-11.1)
[2019-02-19 05:50] LABS: BUN/Creatinine Ratio 16 (6-26); Blood Urea Nitrogen 15 mg/dL (8-23); Calcium 9.1 mg/dL (8.6-10.3); Carbon Dioxide 24 mEq/L (23-29); Chloride 110 mEq/L (98-107); Glucose 90 mg/dL (70-105); Osmolality,Calculated 292 (280-300); Potassium 3.7 mEq/L (3.5-5.1); Sodium 141 mEq/L (136-145); eGFR For African Americans > 60 (> 60); eGFR For Non-African Americans 59 (> 60)
[2019-02-19] MEDS: Budesonide/Formoterol 160/4.5 1 PUFF INH IH SCH ×2 (08:00→20:30)
[2019-02-19] MEDS: cefTRIAXone 2,000 MG in Water for inj. (sterile) 20 ML IVP SCH (09:03)
[2019-02-19] MEDS: Apixaban 5 MG TABLET PO SCH ×2 (09:04→19:45)
[2019-02-19] MEDS: Cholecalciferol (D-3) 1,000 UNIT (25MCG) TABLET PO SCH (09:06)
[2019-02-19] MEDS: Lisinopril 20 MG TABLET PO SCH (09:07)
[2019-02-19] MEDS: Azithromycin 500 MG in 0.9 % Sodium Chloride 250 ML IVPB SCH (09:08)
[2019-02-20] MEDS: Melatonin 3 MG TABLET PO PRN (04:15)
[2019-02-20] MEDS: Budesonide/Formoterol 160/4.5 1 PUFF INH IH SCH (07:33)
[2019-02-20] MEDS: cefTRIAXone 2,000 MG in Water for inj. (sterile) 20 ML IVP SCH (08:02)
[2019-02-20] MEDS: Lisinopril 20 MG TABLET PO SCH (08:03)
[2019-02-20] MEDS: Azithromycin 500 MG in 0.9 % Sodium Chloride 250 ML IVPB SCH (08:03)
[2019-02-20] MEDS: Cholecalciferol (D-3) 1,000 UNIT (25MCG) TABLET PO SCH (08:03)
[2019-02-20] MEDS: Apixaban 5 MG TABLET PO SCH ×2 (08:04→20:28)
[2019-02-20] MEDS ORDERED: GI Cocktail 40 ML EACH PO ONE (09:49)
[2019-02-20] MEDS: Budesonide Neb 0.5 MG/2 ML IH SCH ×2 (22:49→23:09)
[2019-02-21] MEDS: Melatonin 3 MG TABLET PO PRN (00:11)
[2019-02-21 04:36] LABS: Basophils # 0.1 K/mcL (0.0-0.2); Basophils % 0.7 %; Eosinophils # 0.3 K/mcL (0.0-0.6); Eosinophils % 2.8 %; Hematocrit 35.5 % (35.3-44.9); Hemoglobin 11.4 g/dL (11.5-15.4); Immature Granulocytes % 1.7 % (0-4); Lymphocytes # 2.1 K/mcL (0.6-4.6); Lymphocytes % 17.7 %; Mean Corpuscular HGB Conc 32.1 g/dL (31.6-35.5); Mean Corpuscular Hemoglobin 29.5 pg (28.0-33.3); Mean Platelet Volume 11.8 fL (9.4-12.4); Monocytes # 1.3 K/mcL (0.0-1.3); Monocytes % 10.7 %; Neutrophils # 7.7 K/mcL (1.6-8.9); Platelet Count 266 K/mcL (140-400); Red Blood Count 3.86 M/mcL (3.82-4.97); Red Cell Distribution Width 13.2 % (11.5-14.5); Segmented Neutrophils % 66.4 %; White Blood Count 11.7 K/mcL (4.3-11.1)
[2019-02-21 04:50] LABS: BUN/Creatinine Ratio 15 (6-26); Blood Urea Nitrogen 12 mg/dL (8-23); Calcium 9.4 mg/dL (8.6-10.3); Carbon Dioxide 29 mEq/L (23-29); Chloride 105 mEq/L (98-107); Glucose 109 mg/dL (70-105); Osmolality,Calculated 292 (280-300); Potassium 3.7 mEq/L (3.5-5.1); Sodium 141 mEq/L (136-145); eGFR For African Americans > 60 (> 60); eGFR For Non-African Americans > 60 (> 60)
[2019-02-21 06:52] VITALS: BP 163/79
[2019-02-21] MEDS: Budesonide Neb 0.5 MG/2 ML IH SCH (07:54)
[2019-02-21] MEDS ORDERED: Cyanocobalamin (B-12) 1,000 MCG TABLET PO SCH (09:00)
[2019-02-21] MEDS: Lisinopril 20 MG TABLET PO SCH (09:23)
[2019-02-21] MEDS: Apixaban 5 MG TABLET PO SCH (09:23)
[2019-02-21] MEDS: cefTRIAXone 2,000 MG in Water for inj. (sterile) 20 ML IVP SCH (09:23)
[2019-02-21] MEDS: Cholecalciferol (D-3) 1,000 UNIT (25MCG) TABLET PO SCH (09:23)
== END 2019-02-21 11:21 | disposition home health service (06) | DRG 69 ==
LOC: EMEROOARM 13:49 → 2NENU 13:49 → SUATTDRO 17:01 → 2NENU 17:36
PROVIDERS: ADMIT Internal Medicine; ATTEND Internal Medicine

== ENCOUNTER 2019-04-09 17:17 | Inpatient (IN) ==
[2019-04-09 18:52] LABS: Basophils % 0.4 %; Eosinophils # 0.2 K/mcL (0.0-0.6); Eosinophils % 2.4 %; Hematocrit 41.9 % (35.3-44.9); Hemoglobin 13.5 g/dL (11.5-15.4); Immature Granulocytes % 0.4 % (0-4); Lymphocytes # 2.5 K/mcL (0.6-4.6); Lymphocytes % 25.5 %; Mean Corpuscular HGB Conc 32.2 g/dL (31.6-35.5); Mean Corpuscular Hemoglobin 29.3 pg (28.0-33.3); Mean Corpuscular Volume 90.9 fL (83.0-100.0); Mean Platelet Volume 12.4 fL (9.4-12.4); Monocytes % 10.4 %; Neutrophils # 5.9 K/mcL (1.6-8.9); Platelet Count 270 K/mcL (140-400); Red Blood Count 4.61 M/mcL (3.82-4.97); Red Cell Distribution Width 13.8 % (11.5-14.5); Segmented Neutrophils % 60.9 %; White Blood Count 9.6 K/mcL (4.3-11.1)
[2019-04-09 19:12] LABS: BUN/Creatinine Ratio 20 (6-26); Blood Urea Nitrogen 19 mg/dL (8-23); Calcium 10.3 mg/dL (8.6-10.3); Carbon Dioxide 30 mEq/L (23-29); Chloride 103 mEq/L (98-107); Glucose 116 mg/dL (70-105); Osmolality,Calculated 293 (280-300); Potassium 4.1 mEq/L (3.5-5.1); Sodium 140 mEq/L (136-145); eGFR For African Americans > 60 (> 60); eGFR For Non-African Americans 55 (> 60)
[2019-04-09 19:13] LABS: Troponin I < 0.03 ng/mL (< 0.04)
[2019-04-09 19:26] LABS: Thyroid Stimulating Hormone 1.001 mcIU/mL (0.340-5.600)
[2019-04-09 20:00] LABS: Bilirubin,Urine Negative (Negative); Blood,Urine Negative (Negative); Clarity,Urine Clear (Clear); Color,Urine Yellow (Yellow); Glucose,Urine (UA) Normal (Normal); Ketones,Urine Negative (Negative); Leukocyte Esterase,Urine Large (Negative); Nitrite,Urine Negative (Negative); Protein,Urine Negative (Neg-Trace); Specific Gravity,Urine 1.008 (1.010-1.025); Urobilinogen,Urine Normal (Normal)
[2019-04-09 20:03] LABS: Amphetamine Screen,Urine Negative ng/mL (Cutoff=1000); Bacteria,Urine None Seen per hpf (None-Few); Barbiturate Screen,Urine Negative ng/mL (Cutoff=200); Benzodiazepines Screen,Urine Negative ng/mL (Cutoff=200); Cannabinoid Screen,Urine Negative ng/mL (Cutoff = 50); Cocaine Screen,Urine Negative ng/mL (Cutoff= 300); Hyaline Casts,Urine None Seen per lpf (None-Few); Opiate Screen,Urine Negative ng/mL (Cutoff=300); Phencyclidine Screen,Urine Negative ng/mL (Cutoff=25); RBC,Urine 0-3 per hpf (0-3); Squamous Epithelial Cell,Urine Many per lpf (None-Few); WBC,Urine 30-50 per hpf (0-3)
[2019-04-10] MEDS ORDERED: Naloxone 0.4 MG/ML INJ IVP PRN (04:49)
[2019-04-10] MEDS ORDERED: D5% in Water 1,000 ML IVC PRN (04:52)
[2019-04-10] MEDS ORDERED: Dextrose Gel 15 GM/37.5 ML TUBE PO PRN ×2 (04:52)
[2019-04-10] MEDS ORDERED: *HR* Dextrose 50 % in Water (Syg) 50 ML SYRINGE IVP PRN (04:52)
[2019-04-10] MEDS: 0.9 % Sodium Chloride 1,000 ML IVC SCH ×2 (06:00→16:03)
[2019-04-10 07:14] LABS: Hematocrit 40.7 % (35.3-44.9); Mean Corpuscular HGB Conc 31.9 g/dL (31.6-35.5); Mean Corpuscular Hemoglobin 28.8 pg (28.0-33.3); Mean Corpuscular Volume 90.2 fL (83.0-100.0); Mean Platelet Volume 12.6 fL (9.4-12.4); Platelet Count 257 K/mcL (140-400); Red Blood Count 4.51 M/mcL (3.82-4.97); Red Cell Distribution Width 13.8 % (11.5-14.5); White Blood Count 8.9 K/mcL (4.3-11.1)
[2019-04-10 07:29] LABS: BUN/Creatinine Ratio 23 (6-26); Blood Urea Nitrogen 19 mg/dL (8-23); Calcium 9.8 mg/dL (8.6-10.3); Carbon Dioxide 28 mEq/L (23-29); Chloride 105 mEq/L (98-107); Glucose 108 mg/dL (70-105); Osmolality,Calculated 299 (280-300); Sodium 143 mEq/L (136-145); eGFR For African Americans > 60 (> 60); eGFR For Non-African Americans > 60 (> 60)
[2019-04-10] MEDS: Insulin LISPRO 300 UNITS/3 ML VIAL SQ SCH ×4 (08:22→21:14)
[2019-04-10] MEDS: Apixaban 2.5 MG TABLET PO SCH ×2 (08:39→21:14)
[2019-04-10] MEDS: Lisinopril 20 MG TABLET PO SCH (08:40)
[2019-04-10] MEDS ORDERED: risperiDONE 1 MG TABLET PO PRN (12:02)
[2019-04-10] MEDS ORDERED: Acetaminophen 325 MG TABLET PO PRN (12:02)
[2019-04-10] MEDS ORDERED: Melatonin 3 MG TABLET PO PRN (12:02)
[2019-04-10] MEDS ORDERED: Ipratropium/Albuterol Neb 3 ML IH PRN (12:02)
[2019-04-11 03:38] LABS: Basophils % 0.6 %; Eosinophils # 0.3 K/mcL (0.0-0.6); Eosinophils % 3.8 %; Hematocrit 36.1 % (35.3-44.9); Hemoglobin 11.6 g/dL (11.5-15.4); Immature Granulocytes % 0.3 % (0-4); Lymphocytes # 1.5 K/mcL (0.6-4.6); Lymphocytes % 21.3 %; Mean Corpuscular HGB Conc 32.1 g/dL (31.6-35.5); Mean Corpuscular Hemoglobin 29.2 pg (28.0-33.3); Mean Corpuscular Volume 90.9 fL (83.0-100.0); Mean Platelet Volume 12.5 fL (9.4-12.4); Monocytes # 0.8 K/mcL (0.0-1.3); Monocytes % 11.4 %; Neutrophils # 4.4 K/mcL (1.6-8.9); Platelet Count 209 K/mcL (140-400); Red Blood Count 3.97 M/mcL (3.82-4.97); Red Cell Distribution Width 13.7 % (11.5-14.5); Segmented Neutrophils % 62.6 %; White Blood Count 7.1 K/mcL (4.3-11.1)
[2019-04-11 03:50] LABS: BUN/Creatinine Ratio 18 (6-26); Blood Urea Nitrogen 13 mg/dL (8-23); Carbon Dioxide 28 mEq/L (23-29); Chloride 110 mEq/L (98-107); Glucose 101 mg/dL (70-105); Magnesium 1.6 mg/dL (1.6-2.6); Osmolality,Calculated 294 (280-300); Potassium 3.6 mEq/L (3.5-5.1); Sodium 142 mEq/L (136-145); eGFR For African Americans > 60 (> 60); eGFR For Non-African Americans > 60 (> 60)
[2019-04-11] MEDS: Insulin LISPRO 300 UNITS/3 ML VIAL SQ SCH ×4 (07:54→20:49)
[2019-04-11] MEDS: Lisinopril 20 MG TABLET PO SCH (08:58)
[2019-04-11] MEDS: Apixaban 2.5 MG TABLET PO SCH ×2 (08:58→21:00)
[2019-04-11] MEDS: Cholecalciferol (D-3) 1,000 UNIT (25MCG) TABLET PO SCH (08:58)
[2019-04-12 05:38] LABS: Basophils # 0.1 K/mcL (0.0-0.2); Basophils % 0.5 %; Eosinophils # 0.4 K/mcL (0.0-0.6); Eosinophils % 3.8 %; Hematocrit 38.5 % (35.3-44.9); Hemoglobin 12.4 g/dL (11.5-15.4); Immature Granulocytes % 0.3 % (0-4); Lymphocytes # 2.5 K/mcL (0.6-4.6); Lymphocytes % 25.2 %; Mean Corpuscular HGB Conc 32.2 g/dL (31.6-35.5); Mean Corpuscular Hemoglobin 29.7 pg (28.0-33.3); Mean Corpuscular Volume 92.3 fL (83.0-100.0); Mean Platelet Volume 12.6 fL (9.4-12.4); Monocytes % 9.9 %; Neutrophils # 5.9 K/mcL (1.6-8.9); Platelet Count 249 K/mcL (140-400); Red Blood Count 4.17 M/mcL (3.82-4.97); Red Cell Distribution Width 13.6 % (11.5-14.5); Segmented Neutrophils % 60.3 %; White Blood Count 9.8 K/mcL (4.3-11.1)
[2019-04-12 05:59] LABS: BUN/Creatinine Ratio 19 (6-26); Blood Urea Nitrogen 16 mg/dL (8-23); Calcium 9.9 mg/dL (8.6-10.3); Carbon Dioxide 27 mEq/L (23-29); Chloride 105 mEq/L (98-107); Glucose 107 mg/dL (70-105); Magnesium 1.7 mg/dL (1.6-2.6); Osmolality,Calculated 296 (280-300); Potassium 3.4 mEq/L (3.5-5.1); Sodium 142 mEq/L (136-145); eGFR For African Americans > 60 (> 60); eGFR For Non-African Americans > 60 (> 60)
[2019-04-12] MEDS: Insulin LISPRO 300 UNITS/3 ML VIAL SQ SCH ×4 (08:46→22:04)
[2019-04-12] MEDS: Cholecalciferol (D-3) 1,000 UNIT (25MCG) TABLET PO SCH (08:52)
[2019-04-12] MEDS: Apixaban 2.5 MG TABLET PO SCH ×2 (08:53→20:34)
[2019-04-12] MEDS: Lisinopril 20 MG TABLET PO SCH (08:53)
[2019-04-12] MEDS: amLODIPine 5 MG TABLET PO SCH (08:53)
[2019-04-12] MEDS ORDERED: Ipratropium/Albuterol Neb 3 ML IH SCH (12:19)
[2019-04-12] MEDS: Ipratropium/Albuterol Neb 3 ML IH SCH ×2 (16:04→21:57)
[2019-04-13] MEDS: Ipratropium/Albuterol Neb 3 ML IH SCH ×2 (03:50→10:54)
[2019-04-13] MEDS: Insulin LISPRO 300 UNITS/3 ML VIAL SQ SCH ×2 (09:49→12:06)
[2019-04-13] MEDS: Cholecalciferol (D-3) 1,000 UNIT (25MCG) TABLET PO SCH (10:19)
[2019-04-13] MEDS: Apixaban 2.5 MG TABLET PO SCH (10:19)
[2019-04-13] MEDS: amLODIPine 5 MG TABLET PO SCH (10:20)
[2019-04-13] MEDS: Lisinopril 20 MG TABLET PO SCH (10:20)
[2019-04-13 11:23] VITALS: BP 116/73
== END 2019-04-13 14:22 | disposition home health service (06) | DRG 70 ==
LOC: EMEROOARM 17:17 → 3BNU 17:17 → SUATTDRO 21:19 → 3BNU 22:27 → SUATTDRO 04-11 11:02
PROVIDERS: ADMIT Internal Medicine; ATTEND Internal Medicine

== ENCOUNTER 2019-09-02 22:20 | Inpatient (IN) ==
[2019-09-02 23:18] LABS: Basophils % 0.3 %; Eosinophils % 0.2 %; Hematocrit 38.6 % (35.3-44.9); Immature Granulocytes % 1.4 % (0-4); Lymphocytes # 0.7 K/mcL (0.6-4.6); Lymphocytes % 4.6 %; Mean Corpuscular HGB Conc 31.1 g/dL (31.6-35.5); Mean Corpuscular Hemoglobin 29.1 pg (28.0-33.3); Mean Corpuscular Volume 93.5 fL (83.0-100.0); Mean Platelet Volume 12.4 fL (9.4-12.4); Monocytes # 0.8 K/mcL (0.0-1.3); Monocytes % 5.6 %; Neutrophils # 12.6 K/mcL (1.6-8.9); Platelet Count 266 K/mcL (140-400); Red Blood Count 4.13 M/mcL (3.82-4.97); Red Cell Distribution Width 13.9 % (11.5-14.5); Segmented Neutrophils % 87.9 %; White Blood Count 14.3 K/mcL (4.3-11.1)
[2019-09-02 23:30] LABS: Bilirubin,Urine Moderate (Negative); Blood,Urine Negative (Negative); Clarity,Urine Clear (Clear); Color,Urine Dark Yellow (Yellow); Glucose,Urine (UA) Normal (Normal); Ketones,Urine 40 mg/dL (Negative); Leukocyte Esterase,Urine Small (Negative); Nitrite,Urine Negative (Negative); PH,Urine 5.5 pH Units (5.0-8.0); Protein,Urine 30 mg/dL (Neg-Trace); Specific Gravity,Urine 1.026 (1.010-1.025); Urobilinogen,Urine Normal (Normal)
[2019-09-02 23:33] LABS: Bacteria,Urine None Seen per hpf (None-Few); Hyaline Casts,Urine None Seen per lpf (None-Few); Squamous Epithelial Cell,Urine Many per lpf (None-Few)
[2019-09-02 23:39] LABS: BUN/Creatinine Ratio 18 (6-26); Blood Urea Nitrogen 19 mg/dL (8-23); Calcium 9.9 mg/dL (8.6-10.3); Carbon Dioxide 25 mEq/L (23-29); Chloride 105 mEq/L (98-107); Glucose 131 mg/dL (70-105); Osmolality,Calculated 300 (280-300); Potassium 3.5 mEq/L (3.5-5.1); Sodium 143 mEq/L (136-145); eGFR For African Americans > 60 (> 60); eGFR For Non-African Americans 50 (> 60)
[2019-09-02 23:40] LABS: Troponin I < 0.03 ng/mL (< 0.04)
[2019-09-02] MEDS ORDERED: cefTRIAXone 1,000 MG in Water for inj. (sterile) 10 ML IVP ONE (23:44)
[2019-09-03] MEDS ORDERED: *HR* Promethazine 25 MG/ML VIAL IVP PRN (01:29)
[2019-09-03] MEDS ORDERED: 0.9 % Sodium Chloride 1,000 ML IVC ONE (01:34)
[2019-09-03] MEDS ORDERED: TAZOBACTAM IVPB SCH (02:00)
[2019-09-03] MEDS ORDERED: SODIUM CHLORIDE 0.9% IVPB SCH (02:00)
[2019-09-03] MEDS ORDERED: PIPERACILLIN IVPB SCH (02:00)
[2019-09-03] MEDS: 0.9 % Sodium Chloride 1,000 ML IVC SCH ×2 (02:10→22:38)
[2019-09-03] MEDS ORDERED: 0.9 % Sodium Chloride 250 ML ONE (02:26)
[2019-09-03] MEDS ORDERED: 0.9 % Sodium Chloride 500 ML ONE (02:27)
[2019-09-03] MEDS ORDERED: Piperacillin/Tazobactam 3.375 GM in 0.9 % Sodium Chloride Mini Bag 100 ML IVPB SCH (04:00)
[2019-09-03] MEDS: Piperacillin/Tazobactam 3.375 GM in 0.9 % Sodium Chloride Mini Bag 100 ML IVPB SCH ×3 (06:17→22:32)
[2019-09-03 07:36] LABS: Hemoglobin 12.1 g/dL (11.5-15.4); Mean Corpuscular Hemoglobin 30.2 pg (28.0-33.3); Mean Corpuscular Volume 97.3 fL (83.0-100.0); Mean Platelet Volume 12.5 fL (9.4-12.4); Platelet Count 235 K/mcL (140-400); Red Blood Count 4.01 M/mcL (3.82-4.97); Red Cell Distribution Width 13.9 % (11.5-14.5); White Blood Count 16.7 K/mcL (4.3-11.1)
[2019-09-03 08:42] LABS: Calcium 9.3 mg/dL (8.6-10.3); Magnesium 1.5 mg/dL (1.6-2.6); Phosphorous 3.3 mg/dL (2.7-4.5); Potassium 3.6 mEq/L (3.5-5.1); Thyroid Stimulating Hormone 1.455 mcIU/mL (0.340-5.600)
[2019-09-03] MEDS: Vancomycin Oral Soln 125 MG/2.5 ML UDC PO SCH ×4 (12:14→22:38)
[2019-09-03 18:29] LABS: Adenovirus Not Detected (Not Detect); Bordetella Pertussis Not Detected (Not Detect); Coronavirus 229E Not Detected (Not Detect); Coronavirus HKU1 Not Detected (Not Detect); Coronavirus NL63 Not Detected (Not Detect); Coronavirus OC43 Not Detected (Not Detect); Human Metapneumovirus Not Detected (Not Detect); Human Rhinovirus/Enterovirus Not Detected (Not Detect); Influenza A Subtype 2009 H1 Not Detected (Not Detect); Influenza B Not Detected (Not Detect); Parainfluenza Virus 1 Not Detected (Not Detect); Parainfluenza Virus 2 Not Detected (Not Detect); Parainfluenza Virus 3 Not Detected (Not Detect); Parainfluenza Virus 4 Not Detected (Not Detect); Respiratory Syncytial Virus Not Detected (Not Detect)
[2019-09-03 18:30] LABS: Chlamydophila pneumoniae Not Detected (Not Detect); Mycoplasma pneumoniae Not Detected (Not Detect)
[2019-09-03] MEDS: Budesonide/Formoterol 160/4.5 1 PUFF INH IH SCH (20:29)
[2019-09-04] MEDS: Piperacillin/Tazobactam 3.375 GM in 0.9 % Sodium Chloride Mini Bag 100 ML IVPB SCH ×2 (05:35→13:00)
[2019-09-04 06:27] LABS: Hematocrit 35.2 % (35.3-44.9); Hemoglobin 10.7 g/dL (11.5-15.4); Mean Corpuscular HGB Conc 30.4 g/dL (31.6-35.5); Mean Corpuscular Hemoglobin 29.4 pg (28.0-33.3); Mean Corpuscular Volume 96.7 fL (83.0-100.0); Mean Platelet Volume 12.4 fL (9.4-12.4); Platelet Count 218 K/mcL (140-400); Red Blood Count 3.64 M/mcL (3.82-4.97); Red Cell Distribution Width 14.3 % (11.5-14.5); White Blood Count 12.4 K/mcL (4.3-11.1)
[2019-09-04 06:47] LABS: Calcium 8.4 mg/dL (8.6-10.3); Potassium 3.3 mEq/L (3.5-5.1)
[2019-09-04] MEDS: Budesonide/Formoterol 160/4.5 1 PUFF INH IH SCH ×2 (08:03→20:26)
[2019-09-04] MEDS: Vancomycin Oral Soln 125 MG/2.5 ML UDC PO SCH ×4 (09:09→21:55)
[2019-09-04] MEDS: Potassium Chloride Elixir 20 MEQ/15 ML UDC PO SCH (10:01)
[2019-09-04] MEDS ORDERED: cefTRIAXone 2,000 MG in Water for inj. (sterile) 20 ML IVP SCH (14:00)
[2019-09-04] MEDS ORDERED: 0.9 % Sodium Chloride 500 ML IVC ONE (20:09)
[2019-09-05 05:33] LABS: Hematocrit 37.6 % (35.3-44.9); Hemoglobin 11.3 g/dL (11.5-15.4); Mean Corpuscular HGB Conc 30.1 g/dL (31.6-35.5); Mean Corpuscular Hemoglobin 29.1 pg (28.0-33.3); Mean Corpuscular Volume 96.9 fL (83.0-100.0); Mean Platelet Volume 12.9 fL (9.4-12.4); Platelet Count 204 K/mcL (140-400); Red Blood Count 3.88 M/mcL (3.82-4.97); Red Cell Distribution Width 14.3 % (11.5-14.5)
[2019-09-05 05:49] LABS: Calcium 8.9 mg/dL (8.6-10.3); Potassium 3.7 mEq/L (3.5-5.1)
[2019-09-05] MEDS: Potassium Chloride Elixir 20 MEQ/15 ML UDC PO SCH (08:18)
[2019-09-05] MEDS: Vancomycin Oral Soln 125 MG/2.5 ML UDC PO SCH ×4 (08:19→19:45)
[2019-09-05] MEDS: Budesonide/Formoterol 160/4.5 1 PUFF INH IH SCH ×2 (09:53→20:31)
[2019-09-05] MEDS ORDERED: Fluconazole 100 MG TABLET PO SCH (11:30)
[2019-09-06 06:57] LABS: BUN/Creatinine Ratio 24 (6-26); Blood Urea Nitrogen 17 mg/dL (8-23); Calcium 9.6 mg/dL (8.6-10.3); Carbon Dioxide 30 mEq/L (23-29); Chloride 109 mEq/L (98-107); Glucose 91 mg/dL (70-105); Osmolality,Calculated 303 (280-300); Potassium 3.8 mEq/L (3.5-5.1); Sodium 146 mEq/L (136-145); eGFR For African Americans > 60 (> 60); eGFR For Non-African Americans > 60 (> 60)
[2019-09-06] MEDS: Budesonide/Formoterol 160/4.5 1 PUFF INH IH SCH ×2 (07:29→19:43)
[2019-09-06] MEDS: Fluconazole 100 MG TABLET PO SCH (08:39)
[2019-09-06] MEDS: Vancomycin Oral Soln 125 MG/2.5 ML UDC PO SCH ×4 (08:40→20:12)
[2019-09-06] MEDS: Potassium Chloride Elixir 20 MEQ/15 ML UDC PO SCH (08:52)
[2019-09-06] MEDS ORDERED: D5% in 0.45% NACL 500 ML IVC SCH (12:00)
[2019-09-07 02:26] LABS: BUN/Creatinine Ratio 20 (6-26); Blood Urea Nitrogen 17 mg/dL (8-23); Calcium 9.7 mg/dL (8.6-10.3); Carbon Dioxide 31 mEq/L (23-29); Chloride 106 mEq/L (98-107); Glucose 94 mg/dL (70-105); Osmolality,Calculated 291 (280-300); Sodium 140 mEq/L (136-145); eGFR For African Americans > 60 (> 60); eGFR For Non-African Americans > 60 (> 60)
[2019-09-07] MEDS: Budesonide/Formoterol 160/4.5 1 PUFF INH IH SCH (07:46)
[2019-09-07] MEDS: Fluconazole 100 MG TABLET PO SCH (09:34)
[2019-09-07] MEDS: Potassium Chloride Elixir 20 MEQ/15 ML UDC PO SCH (09:35)
[2019-09-07] MEDS: Vancomycin Oral Soln 125 MG/2.5 ML UDC PO SCH ×2 (09:36→12:53)
[2019-09-07 13:11] VITALS: BP 128/72
== END 2019-09-07 13:34 | disposition hospice, inpatient (51) | DRG 871 ==
LOC: 2NENU 22:20 → EMEROOARM 22:20 → 2NENU 09-03 00:55 → SUATTDRO 09-04 14:57 → 3ANU 09-04 19:02
PROVIDERS: ADMIT Internal Medicine; ATTEND Internal Medicine